=== PATIENT | female | born 1995 | race Two or more races ===

== ENCOUNTER 2021-01-01 14:10 | Emergency (ER) | payer OTHER, SELFPAY ==
--- NOTE | ~2021-01-01 | CT_ITS ---
EXAMINATION: CT ABDOMEN AND PELVIS WITH CONTRAST CLINICAL INFORMATION: Patient complaining of right lower quadrant abdominal pain. Evaluate for appendicitis. COMPARISON: Pelvic ultrasound dated 01/01/2021. TECHNIQUE: Multidetector CT volumetric acquisition of the abdomen and pelvis was performed after the administration of 85 and mL of intravenous Omnipaque 350. The data set was reformatted in the sagittal and coronal planes and reviewed on an independent workstation. This CT examination was performed using dose optimization techniques as appropriate, variously including the following: *Automated exposure control *Adjustment of mA and/or kV according to patient size (this includes techniques or standardized protocols for targeted exams where dose is matched to indication/reason for exam; i.e. extremities or head) *Use of iterative reconstruction technique DLP: 539 mGy-cm. FINDINGS: LOWER CHEST: There are multiple peripheral groundglass and consolidative changes seen in both lower lobes, suspicious for viral or atypical pneumonia. LIVER, GALLBLADDER, BILIARY TREE: Liver normal size and attenuation. There are several calcifications seen within the right lobe of the liver, consistent with granulomas. No focal cystic or solid mass or intra-or extrahepatic ductal dilatation. Hepatic and portal veins patent. Gallbladder partially distended and within normal limits. PANCREAS: Normal. No ductal dilatation, mass, or surrounding stranding. SPLEEN: Normal size and appearance. Splenic vein patent. ADRENAL GLANDS AND KIDNEYS: Adrenal glands normal. Kidneys bilaterally symmetric in size and function. There is a 0.4 cm low-attenuation mass in the mid left kidney, too small to further characterize, but statistically most likely a tiny cyst. No other focal mass, hydronephrosis, nephrolithiasis or perinephric stranding. URETERS AND BLADDER: Ureters decompressed and within normal limits. Bladder partially distended and within normal limits. PELVIC ORGANS: Uterus unremarkable. Both ovaries are prominent in size with multiple small follicles seen. No suspicious adnexal mass. GASTROINTESTINAL TRACT: Normal. Small and large bowel loops decompressed. Appendix in right lower quadrant is partially visualized and appears unremarkable to the extent seen. No focal inflammatory process is noted in the right lower quadrant.. LYMPHOVASCULAR STRUCTURES: Abdominal aorta normal in caliber. No periaortic collections. No abdominal or pelvic adenopathy or free fluid collection. BONES: Within normal limits. CT/CT abdomen pelvis w con IMPRESSION: 1. No acute intra-abdominal or pelvic findings seen to explain the patient's right lower quadrant pain. Appendix is only partially visualized but appears unremarkable and no focal inflammatory process is seen in the right lower quadrant. 2. Incidental finding of multifocal peripheral groundglass and consolidative changes in both lower lobes, suspicious for a viral or atypical pneumonia. In the correct clinical setting, findings may be consistent with Covid 19 pneumonia. 3. Incidental findings of hepatic granulomas and probable tiny mid left renal cyst.
--- NOTE | ~2021-01-01 | US_ITS ---
EXAMINATION: US PELVIS AND TRANSVAGINAL US PELVIS OVARIAN DOPPLER CLINICAL INFORMATION: Right lower quadrant pain. Ovarian rupture or torsion? COMPARISON: 07/05/2019 TECHNIQUE: Ultrasound of the pelvis is performed using both transabdominal and transvaginal transducers along with Doppler. Transvaginal imaging is performed in order to better evaluate the ovaries and achieve better Doppler signal. FINDINGS: The uterus and ovaries have a normal appearance on transabdominal imaging. On the transabdominal images, the anteflexed, anteverted uterus measures 7.6 x 3.9 x 5.2 cm (cervix to fundus x AP x transverse dimensions). On transvaginal images, the uterus has normal echotexture. No leiomyoma. The cervix is normal. The echogenic endometrial stripe is 0.1 cm AP. The ovaries are normal on transvaginal imaging, as well. The right ovary measures 3.6 x 2.9 x 3.2 cm. The left ovary measures 2.3 x 2.9 x 2.1 cm. Normal-sized follicles within each ovary. Color Doppler images with spectral waveforms show presence of normal arterial and venous flow within each ovary. Small, physiologic amount free fluid is present in the pelvic cul-de-sac. US/US pelvic and transvaginal IMPRESSION: Normal ultrasound imaging examinations of the uterus and ovaries. No ovarian mass or torsion.
--- NOTE | ~2021-01-01 | US_ITS ---
EXAMINATION: US PELVIS AND TRANSVAGINAL US PELVIS OVARIAN DOPPLER CLINICAL INFORMATION: Right lower quadrant pain. Ovarian rupture or torsion? COMPARISON: 07/05/2019 TECHNIQUE: Ultrasound of the pelvis is performed using both transabdominal and transvaginal transducers along with Doppler. Transvaginal imaging is performed in order to better evaluate the ovaries and achieve better Doppler signal. FINDINGS: The uterus and ovaries have a normal appearance on transabdominal imaging. On the transabdominal images, the anteflexed, anteverted uterus measures 7.6 x 3.9 x 5.2 cm (cervix to fundus x AP x transverse dimensions). On transvaginal images, the uterus has normal echotexture. No leiomyoma. The cervix is normal. The echogenic endometrial stripe is 0.1 cm AP. The ovaries are normal on transvaginal imaging, as well. The right ovary measures 3.6 x 2.9 x 3.2 cm. The left ovary measures 2.3 x 2.9 x 2.1 cm. Normal-sized follicles within each ovary. Color Doppler images with spectral waveforms show presence of normal arterial and venous flow within each ovary. Small, physiologic amount free fluid is present in the pelvic cul-de-sac. US/US pelvic ovarian doppler IMPRESSION: Normal ultrasound imaging examinations of the uterus and ovaries. No ovarian mass or torsion.
[2021-01-01 14:16] VITALS: BP 124/64; PULSE 114; RESP 16; TEMP 36.9; O2SAT 98; BMI 18.2
[2021-01-01 15:17] VITALS: BP 123/72; PULSE 102; RESP 16; TEMP 36.6; O2SAT 100
[2021-01-01 15:28] LABS: Glucose Urine UA NEG (NEG); Leukocyte Esterase Urine NEG (NEG); Nitrite Urine NEG (NEG); Specific Gravity - Urine >= 1.030 (1.005-1.025); UACC Culture Trigger NO; Urine Blood NEG (NEG); Urine Ketones NEG (NEG); Urine Protein 2+ MG/DL (NEG-TRACE)
[2021-01-01 15:29] VITALS: BP 123/72; PULSE 108; RESP 16; O2SAT 98
[2021-01-01 15:29] LABS: Appearance Urine HAZY; Color Urine YELLOW; UPreg QC Valid YES; Urine Pregnancy NEGATIVE (NEGATIVE)
[2021-01-01 15:43] LABS: Bacteria Urine 1+ /LPF; RBC Urine 0-2 /HPF (0); Squamous Epithelial Cell Urine 2+ /LPF
[2021-01-01 15:44] LABS: Mucus Urine 2+ /LPF
--- NOTE | 2021-01-01 16:04 | ED.NAVMDI ---
HPI - Nausea/Vomiting/Diarrhea General Chief complaint: Nausea/Vomiting/Diarrhea Stated complaint: ?rash, eye pain, nausea Time Seen by Provider: 01/01/21 15:26 Source: patient Mode of arrival: ambulatory Limitations: no limitations History of Present Illness HPI Narrative: 25-year-old female with a past medical history of right ovarian cyst and asthma presenting to the ED with complaints of right lower quadrant/suprapubic abdominal pain with associated nausea/vomiting since this morning. She also reports a separate complaint of a rash to her face/bilateral arms and legs that she thinks are bites but she is unsure of what is actually biting her. She reports that she sleeps for her and her son and they do not have any rashes or bites. She denies any new people staying at her house. She does not live in a chcf. She is not homeless. She denies any fevers, chills, dizziness, headaches, cough, sore throat, chest pain, shortness breath, radiation of the abdominal pain, back pain, dysuria, hematuria, abnormal vaginal discharge, black or bloody stools, diarrhea constipation, recent travel or sick contacts or possible bad food exposure or any other symptoms complaints or concerns at this time. MD elicited complaint: nausea, vomiting, abdominal pain and other (rash to arms/legs and face ) Onset (ago): day(s) (Started last night worse this morning) Description of vomiting: bilious Associated nausea: Yes Associated abdominal pain: Yes Location of pain: RLQ (/suprapubic abd pain ) Pain consistency: constant Severity: mild Quality: cramping and aching Exacerbating factors: none Relieving factors: none Associated symptoms: denies other symptoms Related Data Previous Rx's Medication Instructions Recorded diphenhydramine HCl 25 mg tablet 50 mg PO TID PRN #10 tab 01/01/21 (Benadryl Allergy) Allergies Allergy/AdvReac Type Severity Reaction Status Date / Time No Known Allergies Allergy Unverified 01/29/20 19:49 [No Known Allergies*] Review of Systems Review of Systems: Constitutional : No Weight loss, No Fever, No Chills, No Night Sweats, No Fatigue, No Malaise ENT/Mouth: No ear pain, No sore throat, No Difficulty swallowing Cardiovascular : No Chest Pain, No SOB, No Dyspnea on Exertion, No Orthopnea, NoEdema, No Palpitations Respiratory : No Cough, No Sputum, No Wheezing, No Dyspnea Gastrointestinal : Positive nausea/vomiting/abdominal pain, No Diarrhea, No blood streaked emesis, No coffee-ground emesis, No gross hematemesis, No blood streak stool, No gross hematochezia, No Melena Genitourinary : No irregular bleeding, No Dysuria, No Urinary Frequency, No Hematuria,No Urinary Incontinence, No Urgency, No Flank Pain Musculoskeletal : No joint pain, No Myalgias, No Joint Swelling Skin : Positive rash to left chin/bilateral arms and lower extremities, No Skin Lesions Neuro : No Weakness, No Numbness, No Paresthesias, No Loss of Consciousness, NoDizziness, No Headache Psych : No Social Issues, Heme/Lymph: No Bruising, No Bleeding,No Lymphadenopathy Endocrine : No Polyuria, No Polydipsia, No Temperature Intolerance Yes all other systems are reviewed and are negative Gastrointestinal: Gastrointestinal: Reports nausea PMFSH Past Medical History Attestation statement: The following information was validated with the patient. Medical History Asthma Social History Social History Alcohol intake: never Patient Tobacco Use Status: Never used Tobacco Use of substances other than those prescribed or required for medical reasons: No Advance Directives: No Advance Directives Information Provided: No Physical Exam Vital Signs: Vital Signs: Last Vital Signs Temp 97.9 F 01/01/21 15:17 Pulse 109 H 01/01/21 17:20 Resp 16 01/01/21 17:20 BP 117/71 01/01/21 17:20 Pulse Ox 98 01/01/21 17:20 Body Mass Index 18.2 vital signs have been reviewed as normal and appeared to be correct. Blood pressure normal. Heart rate tachycardic at 114. Respiration rate normal. Temperature normal. Oxygen saturation normal. Appearance: Alert. Oriented X3. No acute distress. Head: Normal external exam. Normocephalic. Eyes: PERRLA. EOMI. Conjunctiva and sclera normal. Eyelids normal. ENT: Pharynx normal. Uvula midline. Moist mucous membranes. Neck: Normal inspection. Neck supple. FROM. No adenopathy. No meningeal signs. CVS: Normal heart rate and rhythm. Heart sound normal. No murmurs noted. Pulses normal throughout. Respiratory: No respiratory distress. Painless inspiration. Breath sounds normal. No wheezes/rales/rhonchi noted. Chest nontender. No accessory muscle usage noted or decreased air movement noted. Abdomen: Soft and mild tenderness to palpation to right lower quadrant/suprapubic abdomen. Nondistended. No guarding. No rigidity. Bowel sounds normal in all 4 quadrants. No distention noted. No organomegaly noted. No visible injury noted. No rebound tenderness. Negative Rovsing sign. Negative obturator's sign. Negative psoas sign. Negative Tom sign. Back: No CVA tenderness. Full range of motion noted. Skin: Skin warm and dry. Normal skin color. Normal skin turgor. To the left chin patient is noted to have macular papular erythematous blanchable lesions appear like insect bites noted to have it on her bilateral arms and legs. No signs of infection. No additional rashes/lesions/lacerations noted. Extremities: Extremities exhibit normal range of motion. Extremities nontender. Neuro: Oriented X 3. No motor deficit. No sensory deficit. Reflexes normal. Normal steady gait. Course Course Course Narrative: 16pm - 25-year-old female presenting to the ED with complaints of right lower quadrant/suprapubic abdominal pain with associated nausea/vomiting since this morning.? She also reports a separate complaint of a rash to her face/bilateral arms and legs that she thinks are bites but she is unsure of what is actually biting her.? She reports that she sleeps for her and her son and they do not have any rashes or bites. - On exam patient noted to have mild tenderness palpation to right lower quadrant/suprapubic abdomen. Otherwise the rest of the exam is within normal limits. No CVA tenderness is noted. Patient is noted to have a macular papular rash to the left chin/bilateral arms and lower extremities possibly insect bites. No signs of infection. Plan: Labs, UA, UHCG, pelvic/ovarian ultrasound to evaluate for possible ruptured cyst/hemorrhagic/ovarian cyst/ovarian torsion re-evaluate. Reevaluation(s) Reevaluation #1: - WBC 3000 - PLT 159 - otherwise all other labs are within normal limits. - Patient negative for . - UA within normal limits no evidence of UTI. - awaiting ultrasound will re-evaluate Time: 17:17 Reevaluation #2: - ultrasound of pelvic/ovarian/Doppler within normal limits no acute processes such as ovarian mass/torsion or cyst noted. - therefore will obtain a CT scan of abdomen and pelvis with IV contrast to evaluate for any other acute processes such as appendicitis. - Sign out to ANGÉLICA Alarcon pending CT scan of abd/pelvis c IV contrast Time: 17:49 MDM - Nausea/Vomiting/Diarrhea Medical Records Attestation: I reviewed the patient's medical records. Lab Data Attestation: I reviewed the patient's lab results. Result diagrams: 01/01/21 16:09 01/01/21 16:09 Labs: Lab Results 01/01/21 01/01/21 01/01/21 Range/Units 15:22 15:22 16:09 WBC 3.6 L (4.8-10.8) X10*3/uL RBC 4.57 (4.20-5.50) X10*6/uL Hgb 14.3 (12.0-16.0) g/dl Hct 41.5 (37-47) % MCV 90.8 (80-98) fL MCH 31.3 (27.0-33.0) pg MCHC 34.5 (31.0-35.0) g/dl RDW 11.5 (11.0-16.0) % Plt Count 159 L (160-400) X10*3/uL MPV 10.5 (9.4-12.3) fL Immature Gran % (Auto) 0.0 (0.0-0.4) % Neut % (Auto) 82.5 H (45-73) % Lymph % (Auto) 13.6 L (20-40) % Douglas % (Auto) 3.9 (2-11) % Eos % (Auto) 0.0 (0-4) % Baso % (Auto) 0.0 (0-2) % Lymph # (Auto) 0.5 L (1.2-4.9) X10*3/uL Douglas # (Auto) 0.1 (0.1-1.2) X10*3/uL Eos # (Auto) 0.0 (0.0-0.4) X10*3/uL Baso # (Auto) 0.0 (0.0-0.2) X10*3/uL Abs Immat Gran (auto) 0.00 (0.00-0.03) X10*3/uL Absolute Neuts (auto) 3.0 (2.0-8.3) X10*3/uL Absolute Nucleated RBC 0.000 (0.0-0.012) X10*3/uL Nucleated RBC % (auto) 0.0 (0.0-0.2) /100WBC PT (9.9-13.0) SEC INR (0.9-1.1) Sodium (135-145) mmol/L Potassium (3.3-5.1) mmol/L Chloride (96-108) mmol/L Carbon Dioxide (22-29) mmol/L Anion Gap (12-20) BUN (9-16) mg/dL Creatinine (0.5-1.4) mg/dL Estim Creat Clear Calc Estimated GFR Random Glucose (60-115) mg/dL Calcium (8.4-10.2) mg/dL Magnesium (1.6-2.6) mg/dL Total Bilirubin (0.0-1.0) mg/dL AST (5-31) U/L ALT (0-31) U/L Alkaline Phosphatase (39-117) U/L Total Protein (6.5-8.0) g/dL Albumin (3.5-5.0) g/dL Beta HCG, Quant mIU/mL Urine Color YELLOW Urine Appearance HAZY Urine pH 6.0 (5.0-8.0) Ur Specific Vermilion >= 1.030 H (1.005-1.025) Urine Protein 2+ H (NEG-TRACE) MG/DL Urine Glucose (UA) NEG (NEG) MG/DL Urine Ketones NEG (NEG) MG/DL Urine Blood NEG (NEG) Urine Nitrite NEG (NEG) Ur Leukocyte Esterase NEG (NEG) Urine RBC 0-2 (0) /HPF Urine WBC 1-4 (0-4) /HPF Ur Squamous Epith Cells 2+ /LPF Urine Bacteria 1+ /LPF Urine Mucus 2+ /LPF Urine Test NEGATIVE (NEGATIVE) 01/01/21 01/01/21 01/01/21 Range/Units 16:09 16:09 16:09 WBC (4.8-10.8) X10*3/uL RBC (4.20-5.50) X10*6/uL Hgb (12.0-16.0) g/dl Hct (37-47) % MCV (80-98) fL MCH (27.0-33.0) pg MCHC (31.0-35.0) g/dl RDW (11.0-16.0) % Plt Count (160-400) X10*3/uL MPV (9.4-12.3) fL Immature Gran % (Auto) (0.0-0.4) % Neut % (Auto) (45-73) % Lymph % (Auto) (20-40) % Douglas % (Auto) (2-11) % Eos % (Auto) (0-4) % Baso % (Auto) (0-2) % Lymph # (Auto) (1.2-4.9) X10*3/uL Douglas # (Auto) (0.1-1.2) X10*3/uL Eos # (Auto) (0.0-0.4) X10*3/uL Baso # (Auto) (0.0-0.2) X10*3/uL Abs Immat Gran (auto) (0.00-0.03) X10*3/uL Absolute Neuts (auto) (2.0-8.3) X10*3/uL Absolute Nucleated RBC (0.0-0.012) X10*3/uL Nucleated RBC % (auto) (0.0-0.2) /100WBC PT 12.5 (9.9-13.0) SEC INR 1.1 (0.9-1.1) Sodium 140 (135-145) mmol/L Potassium 4.2 (3.3-5.1) mmol/L Chloride 105 (96-108) mmol/L Carbon Dioxide 26 (22-29) mmol/L Anion Gap 13 (12-20) BUN 13 (9-16) mg/dL Creatinine 0.74 (0.5-1.4) mg/dL Estim Creat Clear Calc 87.1 Estimated GFR > 60 Random Glucose 81 (60-115) mg/dL Calcium 9.2 (8.4-10.2) mg/dL Magnesium 1.7 (1.6-2.6) mg/dL Total Bilirubin 0.2 (0.0-1.0) mg/dL AST 21 (5-31) U/L ALT 15 (0-31) U/L Alkaline Phosphatase 67 (39-117) U/L Total Protein 7.5 (6.5-8.0) g/dL Albumin 4.3 (3.5-5.0) g/dL Beta HCG, Quant < 2 mIU/mL Urine Color Urine Appearance Urine pH (5.0-8.0) Ur Specific Vermilion (1.005-1.025) Urine Protein (NEG-TRACE) MG/DL Urine Glucose (UA) (NEG) MG/DL Urine Ketones (NEG) MG/DL Urine Blood (NEG) Urine Nitrite (NEG) Ur Leukocyte Esterase (NEG) Urine RBC (0) /HPF Urine WBC (0-4) /HPF Ur Squamous Epith Cells /LPF Urine Bacteria /LPF Urine Mucus /LPF Urine Test (NEGATIVE) Imaging Data Pelvic/ovarian/Doppler ultrasound: Attestation: I personally reviewed and interpreted this imaging study as follows: Radiologist's impression: FINDINGS: The uterus and ovaries have a normal appearance on transabdominal imaging. On the transabdominal images, the anteflexed, anteverted uterus measures 7.6 x 3.9 x 5.2 cm (cervix to fundus x AP x transverse dimensions). On transvaginal images, the uterus has normal echotexture. No leiomyoma. The cervix is normal. The echogenic endometrial stripe is 0.1 cm AP. The ovaries are normal on transvaginal imaging, as well. The right ovary measures 3.6 x 2.9 x 3.2 cm. The left ovary measures 2.3 x 2.9 x 2.1 cm. Normal-sized follicles within each ovary. Color Doppler images with spectral waveforms show presence of normal arterial and venous flow within each ovary. Small, physiologic amount free fluid is present in the pelvic cul-de-sac. US/US pelvic ovarian doppler IMPRESSION: Normal ultrasound imaging examinations of the uterus and ovaries. No ovarian mass or torsion. Discharge Plan Discharge Clinical Impression: Insect bite Instructions: Insect Bite or Sting (ED) Prescriptions: New diphenhydramine HCl [Benadryl Allergy] 25 mg tablet 50 mg PO TID PRN (Reason: itching) Qty: 10 RF: 0 Referrals: Physician,None [Primary Care Provider] - 2 days (your pcp) Print Language: Persian
[2021-01-01 16:13] LABS: MANUAL DIFF FLAG NO
[2021-01-01 16:16] LABS: Hematocrit 41.5 % (37-47); Hemoglobin 14.3 g/dl (12.0-16.0); Lymphocytes Absolute Auto 0.5 X10*3/uL (1.2-4.9); Lymphocytes Percent Auto 13.6 % (20-40); Mean Corpuscular HGB Conc 34.5 g/dl (31.0-35.0); Mean Corpuscular Hemoglobin 31.3 pg (27.0-33.0); Mean Corpuscular Volume 90.8 fL (80-98); Mean Platelet Volume 10.5 fL (9.4-12.3); Monocytes Absolute Auto 0.1 X10*3/uL (0.1-1.2); Monocytes Percent Auto 3.9 % (2-11); Neutrophils Percent Auto 82.5 % (45-73); Platelet Count 159 X10*3/uL (160-400); Red Blood Count 4.57 X10*6/uL (4.20-5.50); Red Cell Distribution Width 11.5 % (11.0-16.0); White Blood Count 3.6 X10*3/uL (4.8-10.8)
[2021-01-01 16:21] LABS: INTERNATIONAL NORM RATIO 1.1 (0.9-1.1); Prothrombin Time 12.5 SEC (9.9-13.0)
[2021-01-01 16:38] LABS: Magnesium 1.7 mg/dL (1.6-2.6)
[2021-01-01 16:39] LABS: Alanine Aminotransferase 15 U/L (0-31); Albumin Level 4.3 g/dL (3.5-5.0); Alkaline Phosphatase 67 U/L (39-117); Anion Gap 13 (12-20); Aspartate Amino Transferase 21 U/L (5-31); Bilirubin Total 0.2 mg/dL (0.0-1.0); Blood Urea Nitrogen 13 mg/dL (9-16); Calcium 9.2 mg/dL (8.4-10.2); Carbon Dioxide 26 mmol/L (22-29); Chloride 105 mmol/L (96-108); Creatinine Clr Calc Pharmacy 87.1; Estimated Glomerular Filt Rate > 60; Glucose Random 81 mg/dL (60-115); Potassium 4.2 mmol/L (3.3-5.1); Sodium 140 mmol/L (135-145); Total Protein 7.5 g/dL (6.5-8.0)
[2021-01-01 16:52] LABS: HCG Quantitative < 2 mIU/mL
--- NOTE | 2021-01-01 16:58 | PC.NURSE ---
pt to ultrasound via stretcher.
[2021-01-01 17:20] VITALS: BP 117/71; PULSE 109; RESP 16; O2SAT 98
[2021-01-01 18:32] VITALS: BP 114/67; PULSE 107; RESP 18; TEMP 37.9; O2SAT 99
[2021-01-01] MEDS: iohexoL 350 MG/ML 100 ML INFUS..BTL IV (19:27)
[2021-01-01 19:45] VITALS: BP 116/58; PULSE 94; RESP 16; TEMP 37.3; O2SAT 100
[2021-01-01 21:47] LABS: COVID-19 Test Positive (Negative)
== END 2021-01-01 20:39 | disposition home or self-care (01) ==
PROVIDERS: Nurse Practitioner Family; Physician Assistant Medical; Emergency Provider Internal Medicine
DX: U07.1 COVID-19 (principal); R10.31 Right lower quadrant pain; R21 Rash and other nonspecific skin eruption; S00.86XA Insect bite (nonvenomous) of other part of head, initial encounter; S40.862A Insect bite (nonvenomous) of left upper arm, initial encounter; S40.861A Insect bite (nonvenomous) of right upper arm, initial encounter; S80.862A Insect bite (nonvenomous), left lower leg, initial encounter; S80.861A Insect bite (nonvenomous), right lower leg, initial encounter; W57.XXXA Bitten or stung by nonvenomous insect and other nonvenomous arthropods, initial encounter; Y93.84 Activity, sleeping; Y92.013 Bedroom of single-family (private) house as the place of occurrence of the external cause; Y99.9 Unspecified external cause status
CPT/HCPCS: 0241U; 36415; 74177; 76830; 76856; 80053; 81001; 81025; 83735; 84702; 85025; 85610; 87635; 93975; 99284; Q9967

== ENCOUNTER 2021-02-23 11:48 | Outpatient (REF) | payer OTHER, SELFPAY ==
[2021-02-23 13:33] LABS: MANUAL DIFF FLAG NO
[2021-02-23 13:41] LABS: Basophils Percent Auto 0.3 % (0-2); Eosinophils Absolute Auto 0.1 X10*3/uL (0.0-0.4); Eosinophils Percent Auto 1.5 % (0-4); Hemoglobin 12.7 g/dl (12.0-16.0); Imm Gran Abs Auto 0.01 X10*3/uL (0.00-0.03); Imm Gran Pct Auto 0.2 % (0.0-0.4); Lymphocytes Absolute Auto 2.1 X10*3/uL (1.2-4.9); Lymphocytes Percent Auto 36.2 % (20-40); Mean Corpuscular HGB Conc 33.4 g/dl (31.0-35.0); Mean Corpuscular Hemoglobin 30.5 pg (27.0-33.0); Mean Corpuscular Volume 91.1 fL (80-98); Mean Platelet Volume 11.6 fL (9.4-12.3); Monocytes Absolute Auto 0.3 X10*3/uL (0.1-1.2); Monocytes Percent Auto 5.5 % (2-11); Neutrophils Absolute Auto 3.3 X10*3/uL (2.0-8.3); Neutrophils Percent Auto 56.3 % (45-73); Platelet Count 199 X10*3/uL (160-400); Red Blood Count 4.17 X10*6/uL (4.20-5.50); Red Cell Distribution Width 11.7 % (11.0-16.0); White Blood Count 5.9 X10*3/uL (4.8-10.8)
[2021-02-23 13:55] LABS: Alanine Aminotransferase 11 U/L (0-31); Albumin Level 4.3 g/dL (3.5-5.0); Alkaline Phosphatase 62 U/L (39-117); Anion Gap 12 (12-20); Aspartate Amino Transferase 16 U/L (5-31); Bilirubin Total 0.5 mg/dL (0.0-1.0); Blood Urea Nitrogen 12 mg/dL (9-16); Calcium 9.6 mg/dL (8.4-10.2); Carbon Dioxide 25 mmol/L (22-29); Chloride 105 mmol/L (96-108); Estimated Glomerular Filt Rate > 60; Glucose Fasting 80 mg/dL (60-99); Potassium 3.9 mmol/L (3.3-5.1); Sodium 138 mmol/L (135-145); Total Protein 7.3 g/dL (6.5-8.0)
[2021-02-23 14:15] LABS: Thyroid Stimulating Hormone 0.77 uIU/mL (0.32-4.0)
== END 2021-02-23 11:49 | disposition home or self-care (01) ==
LOC: HO.10HDL 11:48
PROVIDERS: Visit Provider Internal Medicine
DX: Z00.00 Encounter for general adult medical examination without abnormal findings (principal); Z13.31 Encounter for screening for depression; R63.0 Anorexia; R21 Rash and other nonspecific skin eruption; J45.909 Unspecified asthma, uncomplicated
CPT/HCPCS: 36415; 80053; 84443; 85025

== ENCOUNTER 2021-05-26 10:41 | Emergency (ER) | payer OTHER, SELFPAY ==
--- NOTE | ~2021-05-26 | XR_ITS ---
EXAMINATION: XR CHEST CLINICAL INFORMATION: Cough. COMPARISON: None TECHNIQUE: Frontal view of the chest was obtained. FINDINGS: No significant abnormality is noted involving the heart, lungs, mediastinum, bony thorax or soft tissues. XR/XR chest 1V IMPRESSION: Unremarkable chest examination.
[2021-05-26 11:36] VITALS: BP 120/72; PULSE 112; RESP 16; TEMP 36.2; O2SAT 100; BMI 18.2
[2021-05-26 12:12] LABS: COVID-19 Test Negative (Negative); IDNOW Serial# 55D5AD1C
--- NOTE | 2021-05-26 15:36 | ED.URI ---
HPI - URI/Sore Throat General Chief Complaint: Upper Respiratory Symptoms Stated Complaint: cough foot pain Time Seen by Provider: 05/26/21 14:51 History of Present Illness HPI Narrative: Patient complains of some cough sore throat body aches and is also concerned that she has no asthma pump and is worried she may start wheezing, no wheezing or shortness of breath now Related Data Previous Rx's Medication Instructions Recorded diphenhydramine HCl 25 mg tablet 50 mg PO TID PRN #10 tab 01/01/21 (Benadryl Allergy) albuterol sulfate 90 mcg/actuation 2 puff INHALATION Q4-6H PRN #8.5 g 05/26/21 aerosol inhaler azithromycin 250 mg tablet See Rx Instructions .ROUTE 05/26/21 (Zithromax Z-Wally) .COMPLEX #6 tab ibuprofen 600 mg tablet 600 mg PO Q6H PRN #20 tab 05/26/21 prednisone 20 mg tablet 40 mg PO DAILY 5 Days #10 tab 05/26/21 Allergies Allergy/AdvReac Type Severity Reaction Status Date / Time No Known Allergies Allergy Unverified 01/29/20 19:49 [No Known Allergies*] Review of Systems Review of Systems: Patient complains of runny nose cough sore throat and body aches Negatives are no fever no chills no dizziness no weakness no fainting no feeling faint no headache no neck pain or stiff neck no chest pain no shortness of breath no abdominal pain no nausea or vomiting or diarrhea no skin rash Yes all other systems are reviewed and are negative PMFSH Past Medical History Source: nursing notes reviewed Medical History Asthma Social History Social History Alcohol intake: never Patient Tobacco Use Status: Never used Tobacco Advance Directives: No Advance Directives Information Provided: Yes Physical Exam Vital Signs: Vital Signs: Last Vital Signs Temp 97.1 F 05/26/21 11:36 Pulse 112 H 05/26/21 11:36 Resp 16 05/26/21 11:36 BP 120/72 05/26/21 11:36 Pulse Ox 100 05/26/21 11:36 BMI result Body Mass Index 18.2 Well-appearing no acute distress, uncomfortable The eyes anicteric no pallor The ears no redness no canal narrowing no signs of infection The pharynx no redness swelling or exudate, mucous membranes are moist, voice is normal Neck is supple Chest clear to auscultation bilateral no wheezing or adventitious sounds Heart no murmur The extremities full range of motion x4 Course Course Course Narrative: Chest x-ray was negative, I repeated the patient's pulse when I listen to her chest and her pulse was 92, she has no respiratory distress breathing comfortably no signs of asthma now Her pharynx was clear with no lymphadenopathy no redness swelling or exudate, strep on likely and she is being prescribed Zithromax for bronchitis any way so no strep test was done today and she is prescribed antibiotic for bronchitis, COVID test negative and well-appearing patient was discharged MDM - URI/Sore Throat Lab Data Labs: Lab Results 05/26/21 Range/Units 11:41 COVID-19 ([facility]) Negative (Negative) COVID-19 Clin Com See Note Discharge Plan Discharge Clinical Impression: Bronchitis Patient Disposition: Home, Self-Care Additional Instructions: Your COVID test was negative and her chest x-ray was normal I wrote a prescription for antibiotic and an asthma pump and we will do a short course of steroids as well Return any time for difficulty breathing and worse condition or any concerns Prescriptions: New albuterol sulfate 90 mcg/actuation HFA aerosol inhaler 2 puff inhalation Q4-6H PRN (Reason: shortness of breath or wheezing) Qty: 8.5 RF: 0 azithromycin [Zithromax Z-Wally] 250 mg tablet See Rx Instructions .ROUTE .COMPLEX Qty: 6 RF: 0 ibuprofen 600 mg tablet 600 mg PO Q6H PRN (Reason: pain) Qty: 20 RF: 0 prednisone 20 mg tablet 40 mg PO DAILY 5 Days Qty: 10 RF: 0 No Action diphenhydramine HCl [Benadryl Allergy] 25 mg tablet 50 mg PO TID PRN (Reason: itching) Qty: 10 RF: 0 Interventions: ED Discharge Assessment Last Done: 05/26/21 16:30 Discharge Date/Time: 05/26/21 16:30
== END 2021-05-26 16:30 | disposition home or self-care (01) ==
PROVIDERS: Emergency Provider Emergency Medicine
DX: J40 Bronchitis, not specified as acute or chronic (principal); Z20.822 Contact with and (suspected) exposure to COVID-19; J45.909 Unspecified asthma, uncomplicated
CPT/HCPCS: 71045; 87635; 99282; 99283

== ENCOUNTER 2022-02-18 09:39 | Emergency (ER) | payer OTHER, SELFPAY ==
--- NOTE | ~2022-02-18 | XR_ITS ---
EXAMINATION: XR CHEST CLINICAL INFORMATION: Cough for one week. COMPARISON: Chest radiograph dated 05/26/2021. TECHNIQUE: Frontal view of the chest was obtained. FINDINGS: The lungs are clear. The cardiomediastinal silhouette is normal in size. There is no pleural effusion or pneumothorax. No acute osseous abnormality. XR/XR chest 1V IMPRESSION: No acute cardiopulmonary findings.
[2022-02-18 09:58] VITALS: BP 107/56; PULSE 89; RESP 18; TEMP 36.4; O2SAT 99; BMI 23.7
[2022-02-18 10:26] LABS: COVID-19 Test Negative (Negative); IDNOW Serial# 16C4AD1C
--- NOTE | 2022-02-18 11:23 | ED_ITS ---
HPI - URI/Sore Throat General Chief Complaint: Upper Respiratory Symptoms Stated Complaint: cough, pain in back and feet. red eye Time Seen by Provider: 02/18/22 11:23 Source: patient Mode of arrival: ambulatory Limitations: no limitations HPI Narrative: Medication Instructions Recorded and hacking. It is keeping her up at night and she is not sleeping well. He (Benadryl Allergy)
--- NOTE | 2022-02-18 11:23 | ED.URI ---
HPI - URI/Sore Throat General Chief Complaint: Upper Respiratory Symptoms Stated Complaint: cough, pain in back and feet. red eye Time Seen by Provider: 02/18/22 11:23 Source: patient Mode of arrival: ambulatory Limitations: no limitations History of Present Illness HPI Narrative: 27-year-old female with history of mild intermittent asthma presents to the ER for evaluation of coughing episodes for 1 week. She reports the cough is dry and hacking. It is keeping her up at night and she is not sleeping well. He also reports new onset of lower back and body aches pains. She woke up yesterday morning with her right eye crusted shut and new redness to the area. No vision changes, no trauma, no foreign body sensation. She denies any fever or chills. The worse part of her complaints today is the hacking cough that is providing her dose from sleeping. She denies any wheezing, has a history of mild intermittent asthma but does not have an inhaler. MD elicited complaint: cough and other ( body aches and eye redness) Pertinent past history: asthma Onset (ago): week(s) (1) Consistency: constant and progressively worsening Severity: moderate Able to tolerate fluids by mouth: Yes Exacerbating factors: deep breaths and supine positioning Relieving factors: nothing Associated symptoms: myalgias, headache and cough Treatments prior to arrival: none Related Data Previous Rx's Medication Instructions Recorded diphenhydramine HCl 25 mg tablet 50 mg PO TID PRN itching #10 tabs 01/01/21 (Benadryl Allergy) albuterol sulfate 90 mcg/actuation 2 puff inhalation Q4-6H PRN 05/26/21 aerosol inhaler shortness of breath or wheezing #8.5 grams azithromycin 250 mg tablet See Rx Instructions PO .COMPLEX #6 05/26/21 (Zithromax Z-Wally) tabs ibuprofen 600 mg tablet 600 mg PO Q6H PRN pain #20 tabs 05/26/21 prednisone 20 mg tablet 40 mg PO DAILY 5 days #10 tabs 05/26/21 benzonatate 100 mg capsule 100 mg PO TID PRN cough #14 caps 02/18/22 erythromycin 5 mg/gram (0.5 %) eye 0.5 inch ophthalmic (eye) TID #3.5 02/18/22 ointment grams hydrocodone-homatropine 5 mg-1.5 5 ml PO Q6H PRN cough #60 mL 02/18/22 mg/5 mL oral syrup (Hycodan (with homatropine)) ibuprofen 600 mg tablet 600 mg PO Q8H PRN fever or pain 02/18/22 #10 tabs prednisone 20 mg tablet 40 mg PO DAILY #10 tabs 02/18/22 Allergies Allergy/AdvReac Type Severity Reaction Status Date / Time No Known Allergies Allergy Unverified 01/29/20 19:49 [No Known Allergies*] Review of Systems Review of Systems: Constitutional: No Fever, No Chills ENT/Mouth: No sore throat, No Rhinorrhea Eyes: No Eye Pain, No Swelling, + Redness, +Discharge Cardiovascular: No Chest Pain, No SOB, No Orthopnea, No Edema Respiratory: + Cough, No Sputum, No Wheezing, No dyspnea Gastrointestinal: No Nausea, No Vomiting, No Diarrhea, No abdominal Pain Musculoskeletal: No joint pain, + Myalgias Skin: No Skin Lesions, No rash Neuro: No Weakness, No Dizziness, + Headache Heme/Lymph: No Bruising, No Lymphadenopathy [facility] Past Medical History Medical History Asthma Social History Social History Alcohol intake: never Patient Tobacco Use Status: Never used Tobacco Advance Directives: No Advance Directives Information Provided: No Physical Exam Vital Signs: Vital Signs: Last Vital Signs Temp 97.5 F 02/18/22 09:58 Pulse 89 02/18/22 09:58 Resp 18 02/18/22 09:58 BP 107/56 L 02/18/22 09:58 Pulse Ox 99 02/18/22 09:58 O2 Del Method 02/18/22 09:58 BMI result Body Mass Index 23.7 Appearance: Alert. Oriented X3. No acute distress. Eyes: Pupils equal, round and reactive to light. Conjunctival injection in the right eye with some mild purulent discharge ENT: Pharynx with mild generalized erythema, no tonsillar swelling or exudate Neck: Normal inspection. Neck supple. CVS: Normal heart rate and rhythm. Pulses normal. Respiratory: No respiratory distress. Breath sounds normal. Dry cough noted Skin: Skin warm and dry. Normal skin color. Normal skin turgor. No rashes. Extremities: No lower extremity edema. Neuro: Oriented X 3. Nonfocal. Course Course Course Narrative: 27 yo female presenting with cough x7 days, dry and keeping her up at night. Also has low back pain and new right eye erythema and discharge. Lungs are slightly coarse but no wheezing present. VSS. CXR is clear. COVID negative. Most likely viral URI. Will give Rx for anti-tussive, prendisone, and erythromycin eye ointment for conjunctivitis. MDM - URI/Sore Throat Lab Data Labs: Lab Results 02/18/22 Range/Units 10:06 COVID-19 ([facility]) Negative (Negative) COVID-19 Clin Com See Note Critical Care Time Critical Care Time Critical Care Time: No Discharge Plan Discharge Clinical Impression: Upper respiratory infection, Conjunctivitis Patient Disposition: Home, Self-Care Instructions: Upper Respiratory Infection (ED), Viral Syndrome (ED), Conjunctivitis (ED) Additional Instructions: Your x-ray was negative for pneumonia. You are negative for COVID Take all of the prescribed medications as directed Do not drive after taking the Hycodan - it can make you lethargic - take it at night before bed Rest and stay hydrated If you develop new or worsening symptoms call 911 or come back to the ER for further evaluation. Prescriptions: New erythromycin 5 mg/gram (0.5 %) ointment 0.5 inch ophthalmic (eye) TID Qty: 3.5 0RF ibuprofen 600 mg tablet 600 mg PO Q8H PRN (Reason: fever or pain) Qty: 10 0RF benzonatate 100 mg capsule 100 mg PO TID PRN (Reason: cough) Qty: 14 0RF hydrocodone-homatropine [Hycodan (with homatropine)] 5-1.5 mg/5 mL syrup 5 ml PO Q6H PRN (Reason: cough) Qty: 60 0RF Rx Instructions: Partial Fill upon patient request. prednisone 20 mg tablet 40 mg PO DAILY Qty: 10 0RF No Action diphenhydramine HCl [Benadryl Allergy] 25 mg tablet 50 mg PO TID PRN (Reason: itching) Qty: 10 0RF albuterol sulfate 90 mcg/actuation HFA aerosol inhaler 2 puff inhalation Q4-6H PRN (Reason: shortness of breath or wheezing) Qty: 8.5 0RF azithromycin [Zithromax Z-Wally] 250 mg tablet See Rx Instructions .ROUTE .COMPLEX Qty: 6 0RF Rx Instructions: For 250 mg dose pack: take 500 mg today (day 1), then 250 mg for 4 days (days 2-5) ibuprofen 600 mg tablet 600 mg PO Q6H PRN (Reason: pain) Qty: 20 0RF prednisone 20 mg tablet 40 mg PO DAILY 5 Days Qty: 10 0RF Print Language: Gabonese
--- OUTSIDE RECORDS SUMMARY | 2022-02-18 11:47 | XMS_ITS ---
Continuity of Care Document
== END 2022-02-18 12:02 | disposition home or self-care (01) ==
PROVIDERS: Emergency Provider Emergency Medicine
DX: J06.9 Acute upper respiratory infection, unspecified (principal); H10.9 Unspecified conjunctivitis; Z20.822 Contact with and (suspected) exposure to COVID-19; J45.909 Unspecified asthma, uncomplicated
CPT/HCPCS: 71045; 87635; 99282; 99283

== ENCOUNTER 2022-07-10 09:32 | Outpatient (REF) | payer OTHER, SELFPAY ==
[2022-07-10 10:40] LABS: MANUAL DIFF FLAG NO
[2022-07-10 10:46] LABS: Basophils Percent Auto 0.3 % (0-2); Eosinophils Percent Auto 0.6 % (0-4); Hemoglobin 13.3 g/dl (12.0-16.0); Imm Gran Abs Auto 0.02 X10*3/uL (0.00-0.03); Imm Gran Pct Auto 0.3 % (0.0-0.4); Lymphocytes Absolute Auto 1.8 X10*3/uL (1.2-4.9); Lymphocytes Percent Auto 25.9 % (20-40); Mean Corpuscular HGB Conc 33.3 g/dl (31.0-35.0); Mean Corpuscular Hemoglobin 30.2 pg (27.0-33.0); Mean Corpuscular Volume 90.7 fL (80.0-98.0); Mean Platelet Volume 11.2 fL (9.4-12.3); Monocytes Absolute Auto 0.4 X10*3/uL (0.1-1.2); Monocytes Percent Auto 5.9 % (2-11); Neutrophils Absolute Auto 4.6 x10*3/uL (2.0-8.3); Platelet Count 249 X10*3/uL (160-400); Red Blood Count 4.41 X10*6/uL (4.20-5.50); Red Cell Distribution Width 11.4 % (11.0-16.0); White Blood Count 6.8 X10*3/uL (4.8-10.8)
[2022-07-10 11:26] LABS: Alanine Aminotransferase 12 U/L (0-31); Albumin Level 4.2 g/dL (3.5-5.0); Alkaline Phosphatase 55 U/L (39-117); Anion Gap 9 (12-20); Aspartate Amino Transferase 16 U/L (5-31); Bilirubin Total 0.5 mg/dL (0.0-1.0); Blood Urea Nitrogen 15 mg/dL (9-16); Calcium 9.2 mg/dL (8.4-10.2); Carbon Dioxide 29 mmol/L (22-29); Chloride 106 mmol/L (96-108); Estimated Glomerular Filt Rate > 60; Glucose Fasting 82 mg/dL (60-99); Potassium 4.6 mmol/L (3.3-5.1); Sodium 139 mmol/L (135-145); Total Protein 7.2 g/dL (6.5-8.0)
== END 2022-07-10 09:33 | disposition home or self-care (01) ==
LOC: HO.10HDL 09:32
PROVIDERS: Internal Medicine; Visit Provider Internal Medicine
DX: Z00.00 Encounter for general adult medical examination without abnormal findings (principal); Z13.31 Encounter for screening for depression; R21 Rash and other nonspecific skin eruption
CPT/HCPCS: 36415; 80053; 84443; 85025

== ENCOUNTER 2022-07-10 09:46 | Emergency (ER) | payer OTHER, SELFPAY ==
--- NOTE | ~2022-07-10 | CT_ITS ---
EXAMINATION: CT HEAD WITHOUT CONTRAST CLINICAL INFORMATION: Headache, pain COMPARISON: None TECHNIQUE: Contiguous axial imaging was performed from the skull base to vertex without intravenous administration of contrast. Additional 2-D coronal and sagittal reformatted images are generated on the CT workstation and uploaded to PACS. This CT examination was performed using dose optimization techniques as appropriate, variously including the following: *Automated exposure control *Adjustment of mA and/or kV according to patient size (this includes techniques or standardized protocols for targeted exams where dose is matched to indication/reason for exam; i.e. extremities or head) *Use of iterative reconstruction technique DLP: [id number] mGy-cm FINDINGS: There is no intracranial hemorrhage, hematoma, or extra-axial fluid collection. The ventricles are normal in size. There is no hydrocephalus, edema, or mass effect. The rodriguez-white matter differentiation appears well preserved . There is no visible acute territorial infarct or mass lesion. The calvarium appears intact. There is no pneumocephalus or orbital emphysema. There is mild mucosal thickening versus small retention cyst posterior inferior lateral left sphenoid. Mild mucosal thickening posterior left ethmoid air cells. No air-fluid levels sinuses, middle ears, or mastoids. CT/CT head/brain wo IV con IMPRESSION: No acute intracranial abnormality.
[2022-07-10 09:49] VITALS: BP 112/64; PULSE 86; RESP 18; TEMP 36.2; O2SAT 100; BMI 22.4
[2022-07-10 10:06] LABS: Basophils Percent Auto 0.3 % (0-2); Eosinophils Percent Auto 0.4 % (0-4); Hemoglobin 13.7 g/dl (12.0-16.0); Imm Gran Abs Auto 0.03 X10*3/uL (0.00-0.03); Imm Gran Pct Auto 0.4 % (0.0-0.4); Lymphocytes Absolute Auto 1.8 X10*3/uL (1.2-4.9); Lymphocytes Percent Auto 25.8 % (20-40); MANUAL DIFF FLAG NO; Mean Corpuscular HGB Conc 34.3 g/dl (31.0-35.0); Mean Corpuscular Volume 90.5 fL (80.0-98.0); Mean Platelet Volume 10.3 fL (9.4-12.3); Monocytes Absolute Auto 0.4 X10*3/uL (0.1-1.2); Monocytes Percent Auto 5.6 % (2-11); Neutrophils Absolute Auto 4.8 x10*3/uL (2.0-8.3); Neutrophils Percent Auto 67.5 % (45-73); Platelet Count 254 X10*3/uL (160-400); Red Blood Count 4.42 X10*6/uL (4.20-5.50); Red Cell Distribution Width 11.4 % (11.0-16.0); White Blood Count 7.1 X10*3/uL (4.8-10.8)
[2022-07-10 10:34] LABS: Anion Gap 11 (12-20); Blood Urea Nitrogen 15 mg/dL (9-16); Calcium 9.3 mg/dL (8.4-10.2); Carbon Dioxide 24 mmol/L (22-29); Chloride 108 mmol/L (96-108); Creatinine Clr Calc Pharmacy 104.6; Estimated Glomerular Filt Rate > 60; Glucose Random 88 mg/dL (60-115); Sodium 138 mmol/L (135-145)
[2022-07-10 10:50] LABS: Appearance Urine Clear; Color Urine Yellow; Glucose Urine UA Negative (Negative); Leukocyte Esterase Urine Small (1+) (Negative); Nitrite Urine Negative (Negative); Specific Gravity - Urine 1.025 (1.005-1.025); UMIC TRIGGER UACC YES; Urine Blood Moderate (2+) (Negative); Urine Ketones Negative (Negative); Urine Protein Negative (Neg-Trace)
[2022-07-10 10:51] LABS: UPreg QC Valid YES; Urine Pregnancy NEGATIVE (NEGATIVE)
[2022-07-10 11:03] LABS: Bacteria Urine None Seen (None Seen); Hyaline Casts Urine 0-2 /LPF (0-2); RBC Urine 0-2 /HPF (0-2); UACC Culture Trigger YES; WBC Urine 0-5 /HPF (0-5)
[2022-07-10 12:24] LABS: Influenza A PCR NEGATIVE (Negative); Influenza B PCR NEGATIVE (Negative); Resp Syncy Virus RNA Qual PCR NEGATIVE (Negative); SARS COV2 PCR INHOUSE NEGATIVE (Negative)
--- NOTE | 2022-07-10 12:27 | ED.HA ---
HPI - Headache General Chief Complaint: Headache Stated Complaint: headache Time Seen by Provider: 07/10/22 11:52 Source: patient History of Present Illness HPI Narrative: Patient complaining of headache for the past 5 days. She describes it as bilateral pressure in the synagogue area. Positive nausea positive photophobia. She states she does not typically get headaches but had a similar episode when she was about 18 years old. Question of family history of migraines. Pain came on gradually. No thunderclap headache. No recent illness. No fevers or chills. No neck pain. No focal weakness. Related Data Previous Rx's Medication Instructions Recorded diphenhydramine HCl 25 mg tablet 50 mg PO TID PRN itching #10 tabs 01/01/21 (Benadryl Allergy) albuterol sulfate 90 mcg/actuation 2 puff inhalation Q4-6H PRN 05/26/21 aerosol inhaler shortness of breath or wheezing #8.5 grams azithromycin 250 mg tablet See Rx Instructions PO .COMPLEX #6 05/26/21 (Zithromax Z-Wally) tabs ibuprofen 600 mg tablet 600 mg PO Q6H PRN pain #20 tabs 05/26/21 prednisone 20 mg tablet 40 mg PO DAILY 5 days #10 tabs 05/26/21 benzonatate 100 mg capsule 100 mg PO TID PRN cough #14 caps 02/18/22 erythromycin 5 mg/gram (0.5 %) eye 0.5 inch ophthalmic (eye) TID #3.5 02/18/22 ointment grams hydrocodone-homatropine 5 mg-1.5 5 ml PO Q6H PRN cough #60 mL 02/18/22 mg/5 mL oral syrup (Hycodan (with homatropine)) ibuprofen 600 mg tablet 600 mg PO Q8H PRN fever or pain 02/18/22 #10 tabs prednisone 20 mg tablet 40 mg PO DAILY #10 tabs 02/18/22 ibuprofen 800 mg tablet 800 mg PO Q8H PRN pain #30 tabs 07/10/22 metoclopramide HCl 10 mg tablet 10 mg PO Q6H PRN nausea and 07/10/22 vomiting #14 tabs Allergies Allergy/AdvReac Type Severity Reaction Status Date / Time No Known Allergies Allergy Unverified 01/29/20 19:49 [No Known Allergies*] Review of Systems Constitutional: Comments: No fevers or chills Eyes: Comments: Photophobia. No vision changes Cardiovascular: Comments: No chest pain Respiratory: Comments: No dyspnea or cough Gastrointestinal: Comments: Nausea. No abdominal pain Genitourinary: Comments: No urinary symptoms Musculoskeletal: Comments: No musculoskeletal symptoms Neurologic: Comments: Headache. No focal weakness PMFSH Past Medical History Medical History Asthma Social History Social History Alcohol intake: never Patient Tobacco Use Status: Never used Tobacco Advance Directives: No Advance Directives Information Provided: No Physical Exam Vital Signs: Vital Signs: Last Vital Signs Temp 97.2 F 07/10/22 09:49 Pulse 86 07/10/22 09:49 Resp 18 07/10/22 09:49 BP 112/64 07/10/22 09:49 Pulse Ox 100 07/10/22 09:49 O2 Del Method 07/10/22 09:49 BMI result Body Mass Index 22.4 Const: Other: Awake alert. Sitting up. No acute distress HEENT: Other: Normocephalic atraumatic Eyes: Other: Mild photophobia. Pupils equal round reactive to light. Extraocular muscles intact Neck: Other: No meningismus Resp: Other: Clear and equal bilaterally without wheezes rales or rhonchi Cardio: Other: Regular rate and rhythm without murmurs rubs or gallops GI: Other: Soft nontender nondistended Skin: Other: No rash Neuro: Other: No focal neurologic deficit Medications Administered Discontinued Medications Generic Name Dose Route Start Last Admin Trade Name Tremaineq PRN Reason Stop Dose Admin Diphenhydramine HCl 25 mg 07/10/22 12:23 07/10/22 12:57 Diphenhydramine Hcl 50 Mg/Ml Vial IVPUSH 07/10/22 12:24 25 mg ONCE ONE Administration Sodium Chloride 1,000 mls @ 999 mls/hr 07/10/22 12:15 07/10/22 14:02 Ns IV 07/10/22 13:15 Infused .Q1H1M DAVE Infusion Ketorolac Tromethamine 30 mg 07/10/22 12:15 07/10/22 12:57 Ketorolac Tromethamine 15 Mg/Ml Vial IVPUSH 07/10/22 12:16 30 mg ONCE ONE Administration Metoclopramide HCl 10 mg 07/10/22 12:15 07/10/22 12:57 Metoclopramide Hcl 10 Mg/2 Ml Vial IVPUSH 07/10/22 12:16 10 mg ONCE ONE Administration Medical Decision Making Medical Decision Making [facility] Narrative: Patient with 5 days worth of headache in the setting of nausea and photophobia. No infectious symptoms or concerns for meningitis at this point. No definite history of migraines but positive familial history of a similar episode 10 years ago. Headache was gradual in onset. Given no prior workup for headaches, will order CT scan to rule out obvious hemorrhage or mass effect. Low concern for subarachnoid at this time. Will treat with IV fluids, IV Toradol, IV Reglan, IV Benadryl. Will re-evaluate after treatment and CT scan results. 14:51. CT scan is normal. Re-evaluation shows patient is feeling much better. She is stable for discharge home with a final diagnosis of headache, migraine type Lab Data 07/10/22 10:01 07/10/22 10:01 Labs: Lab Results 07/10/22 07/10/22 07/10/22 Range/Units 10:01 10:01 10:36 WBC 7.1 (4.8-10.8) X10*3/uL RBC 4.42 (4.20-5.50) X10*6/uL Hgb 13.7 (12.0-16.0) g/dl Hct 40.0 (37.0-47.0) % MCV 90.5 (80.0-98.0) fL MCH 31.0 (27.0-33.0) pg MCHC 34.3 (31.0-35.0) g/dl RDW 11.4 (11.0-16.0) % Plt Count 254 (160-400) X10*3/uL MPV 10.3 (9.4-12.3) fL Immature Gran % (Auto) 0.4 (0.0-0.4) % Neut % (Auto) 67.5 (45-73) % Lymph % (Auto) 25.8 (20-40) % [place] % (Auto) 5.6 (2-11) % Eos % (Auto) 0.4 (0-4) % Baso % (Auto) 0.3 (0-2) % Lymph # (Auto) 1.8 (1.2-4.9) X10*3/uL [place] # (Auto) 0.4 (0.1-1.2) X10*3/uL Eos # (Auto) 0.0 (0.0-0.4) X10*3/uL Baso # (Auto) 0.0 (0.0-0.2) X10*3/uL Abs Immat Gran (auto) 0.03 (0.00-0.03) X10*3/uL Absolute Neuts (auto) 4.8 (2.0-8.3) x10*3/uL Absolute Nucleated RBC 0.000 (0.0-0.012) X10*3/uL Nucleated RBC % (auto) 0.0 (0.0-0.2) /100WBC Sodium 138 (135-145) mmol/L Potassium 5.0 (3.3-5.1) mmol/L Chloride 108 (96-108) mmol/L Carbon Dioxide 24 (22-29) mmol/L Anion Gap 11 L (12-20) BUN 15 (9-16) mg/dL Creatinine 0.68 (0.5-1.4) mg/dL Estim Creat Clear Calc 104.6 Estimated GFR > 60 Random Glucose 88 (60-115) mg/dL Calcium 9.3 (8.4-10.2) mg/dL Urine Color Yellow Urine Appearance Clear Urine pH 6.0 (5.0-9.0) Ur Specific [place] 1.025 (1.005-1.025) Urine Protein Negative (Neg-Trace) mg/dL Urine Glucose (UA) Negative (Negative) mg/dL Urine Ketones Negative (Negative) mg/dL Urine Blood Moderate (2+) H (Negative) Urine Nitrite Negative (Negative) Ur Leukocyte Esterase Small (1+) H (Negative) Urine RBC 0-2 (0-2) /HPF Urine WBC 0-5 (0-5) /HPF Ur Squamous Epith Cells 3-5 (0-2) /HPF Urine Bacteria None Seen (None Seen) Hyaline Casts 0-2 (0-2) /LPF Urine Test (NEGATIVE) Influenza Type A (PCR) (Negative) Influenza Type B (PCR) (Negative) RSV RNA Qual (PCR) (Negative) SARS-CoV-2 RNA (RT-PCR) (Negative) 07/10/22 07/10/22 Range/Units 10:36 11:27 WBC (4.8-10.8) X10*3/uL RBC (4.20-5.50) X10*6/uL Hgb (12.0-16.0) g/dl Hct (37.0-47.0) % MCV (80.0-98.0) fL MCH (27.0-33.0) pg MCHC (31.0-35.0) g/dl RDW (11.0-16.0) % Plt Count (160-400) X10*3/uL MPV (9.4-12.3) fL Immature Gran % (Auto) (0.0-0.4) % Neut % (Auto) (45-73) % Lymph % (Auto) (20-40) % [place] % (Auto) (2-11) % Eos % (Auto) (0-4) % Baso % (Auto) (0-2) % Lymph # (Auto) (1.2-4.9) X10*3/uL [place] # (Auto) (0.1-1.2) X10*3/uL Eos # (Auto) (0.0-0.4) X10*3/uL Baso # (Auto) (0.0-0.2) X10*3/uL Abs Immat Gran (auto) (0.00-0.03) X10*3/uL Absolute Neuts (auto) (2.0-8.3) x10*3/uL Absolute Nucleated RBC (0.0-0.012) X10*3/uL Nucleated RBC % (auto) (0.0-0.2) /100WBC Sodium (135-145) mmol/L Potassium (3.3-5.1) mmol/L Chloride (96-108) mmol/L Carbon Dioxide (22-29) mmol/L Anion Gap (12-20) BUN (9-16) mg/dL Creatinine (0.5-1.4) mg/dL Estim Creat Clear Calc Estimated GFR Random Glucose (60-115) mg/dL Calcium (8.4-10.2) mg/dL Urine Color Urine Appearance Urine pH (5.0-9.0) Ur Specific [place] (1.005-1.025) Urine Protein (Neg-Trace) mg/dL Urine Glucose (UA) (Negative) mg/dL Urine Ketones (Negative) mg/dL Urine Blood (Negative) Urine Nitrite (Negative) Ur Leukocyte Esterase (Negative) Urine RBC (0-2) /HPF Urine WBC (0-5) /HPF Ur Squamous Epith Cells (0-2) /HPF Urine Bacteria (None Seen) Hyaline Casts (0-2) /LPF Urine Test NEGATIVE (NEGATIVE) Influenza Type A (PCR) NEGATIVE (Negative) Influenza Type B (PCR) NEGATIVE (Negative) RSV RNA Qual (PCR) NEGATIVE (Negative) SARS-CoV-2 RNA (RT-PCR) NEGATIVE (Negative) Discharge Plan Discharge Clinical Impression: Migraine Patient Disposition: Home, Self-Care Instructions: Migraine Headache (ED) Prescriptions: New metoclopramide HCl 10 mg tablet 10 mg PO Q6H PRN (Reason: nausea and vomiting) Qty: 14 0RF ibuprofen 800 mg tablet 800 mg PO Q8H PRN (Reason: pain) Qty: 30 0RF No Action diphenhydramine HCl [Benadryl Allergy] 25 mg tablet 50 mg PO TID PRN (Reason: itching) Qty: 10 0RF albuterol sulfate 90 mcg/actuation HFA aerosol inhaler 2 puff inhalation Q4-6H PRN (Reason: shortness of breath or wheezing) Qty: 8.5 0RF azithromycin [Zithromax Z-Wally] 250 mg tablet See Rx Instructions .ROUTE .COMPLEX Qty: 6 0RF Rx Instructions: For 250 mg dose pack: take 500 mg today (day 1), then 250 mg for 4 days (days 2-5) ibuprofen 600 mg tablet 600 mg PO Q6H PRN (Reason: pain) Qty: 20 0RF prednisone 20 mg tablet 40 mg PO DAILY 5 Days Qty: 10 0RF erythromycin 5 mg/gram (0.5 %) ointment 0.5 inch ophthalmic (eye) TID Qty: 3.5 0RF ibuprofen 600 mg tablet 600 mg PO Q8H PRN (Reason: fever or pain) Qty: 10 0RF benzonatate 100 mg capsule 100 mg PO TID PRN (Reason: cough) Qty: 14 0RF hydrocodone-homatropine [Hycodan (with homatropine)] 5-1.5 mg/5 mL syrup 5 ml PO Q6H PRN (Reason: cough) Qty: 60 0RF Rx Instructions: Partial Fill upon patient request. prednisone 20 mg tablet 40 mg PO DAILY Qty: 10 0RF Stand Alone Forms: Work/School Release
[2022-07-10] MEDS: 0.9 % Sodium Chloride 1,000 ML 999 ML IV (12:57)
[2022-07-10] MEDS: Metoclopramide HCl 10 MG/2 ML VIAL IVPUSH (12:57)
[2022-07-10] MEDS: Ketorolac Tromethamine 15 MG/ML VIAL 30 MG IVPUSH (12:57)
[2022-07-10] MEDS: diphenhydrAMINE HCL 50 MG/ML VIAL 25 MG IVPUSH (12:57)
[2022-07-10 15:15] VITALS: BP 109/57; PULSE 90; RESP 18; TEMP 36.8; O2SAT 99
== END 2022-07-10 15:20 | disposition home or self-care (01) ==
PROVIDERS: Physician Assistant Medical; Emergency Provider Emergency Medicine; PCP Internal Medicine
DX: G43.909 Migraine, unspecified, not intractable, without status migrainosus (principal); Z20.822 Contact with and (suspected) exposure to COVID-19; Z20.828 Contact with and (suspected) exposure to other viral communicable diseases
CPT/HCPCS: 0241U; 36415; 70450; 80048; 81001; 81025; 85025; 87086; 96361; 96374; 96375; 99284; J1200; J1885; J2765

== ENCOUNTER 2022-07-31 16:59 | Emergency (ER) | payer OTHER, SELFPAY ==
[2022-07-31 17:01] VITALS: BP 115/68; PULSE 122; RESP 18; TEMP 36.6; O2SAT 99; BMI 22.1
--- NOTE | 2022-07-31 17:01 | ED_ITS ---
HPI - General Adult General Chief complaint: Nausea/Vomiting/Diarrhea <JOSE ANTONIO Gerardo - Last Filed: 07/31/22 17:02> Stated complaint: vomiting/diarrhea <JOSE ANTONIO Gerardo - Last Filed: 07/31/22 17:02> Time Seen by Provider: 07/31/22 21:24 <JOSE ANTONIO Gerardo - Last Filed: 07/31/22 17:02> Source: patient <Lorena Lr MD - Last Filed: 07/31/22 22:25> Mode of arrival: ambulatory <Lorena Lr MD - Last Filed: 07/31/22 22:25> Limitations: no limitations <Lorena Lr MD - Last Filed: 07/31/22 22:25> History of Present Illness HPI narrative: Patient comes to the emergency room complaining of 2 days of headache, nausea vomiting and diarrhea. Patient denies fever or chills <Lorena Lr MD - Last Filed: 07/31/22 22:25> Related Data Home medications: Previous Rx's Medication Instructions Recorded diphenhydramine HCl 25 mg tablet 50 mg PO TID PRN itching #10 tabs 01/01/21 (Benadryl Allergy) albuterol sulfate 90 mcg/actuation 2 puff inhalation Q4-6H PRN 05/26/21 aerosol inhaler shortness of breath or wheezing #8.5 grams azithromycin 250 mg tablet See Rx Instructions PO .COMPLEX #6 05/26/21 (Zithromax Z-Wally) tabs ibuprofen 600 mg tablet 600 mg PO Q6H PRN pain #20 tabs 05/26/21 prednisone 20 mg tablet 40 mg PO DAILY 5 days #10 tabs 05/26/21 benzonatate 100 mg capsule 100 mg PO TID PRN cough #14 caps 02/18/22 erythromycin 5 mg/gram (0.5 %) eye 0.5 inch ophthalmic (eye) TID #3.5 02/18/22 ointment grams hydrocodone-homatropine 5 mg-1.5 5 ml PO Q6H PRN cough #60 mL 02/18/22 mg/5 mL oral syrup (Hycodan (with homatropine)) ibuprofen 600 mg tablet 600 mg PO Q8H PRN fever or pain 02/18/22 #10 tabs prednisone 20 mg tablet 40 mg PO DAILY #10 tabs 02/18/22 ibuprofen 800 mg tablet 800 mg PO Q8H PRN pain #30 tabs 07/10/22 metoclopramide HCl 10 mg tablet 10 mg PO Q6H PRN nausea and 07/10/22 vomiting #14 tabs loperamide 2 mg tablet 2 mg PO Q6H PRN loose stool #10 07/31/22 tabs ondansetron 4 mg disintegrating 4 mg PO Q6H PRN nausea and 07/31/22 tablet vomiting #10 tabs <JOSE ANTONIO Gerardo - Last Filed: 07/31/22 17:02> Allergies/adverse reactions: Allergies Allergy/AdvReac Type Severity Reaction Status Date / Time No Known Allergies Allergy Unverified 01/29/20 19:49 [No Known Allergies*] <JOSE ANTONIO Gerardo - Last Filed: 07/31/22 17:02> Review of Systems Review of Systems: Constitutional : No Weight loss, No Fever, No Chills, No Night Sweats, No Fatigue, complaining of generalized malaise ENT/Mouth : No Hearing loss, No Ear Pain, No Nasal Congestion, No Sinus Pain, No Hoarseness, No sore throat, No Rhinorrhea, No Swallowing Difficulty Eyes: No Eye Pain, No Swelling, No Redness, No Foreign Body, No Discharge, No Vision Changes Cardiovascular : No Chest Pain, No SOB, No Dyspnea on Exertion, No Orthopnea, No Edema, No Palpitations Respiratory : No Cough, No Sputum, No Wheezing, No Smoke Exposure, No Dyspnea Gastrointestinal : Complaining of nausea vomiting and diarrhea, No Constipation, No abdominal Pain, No Hematochezia, No Melena Genitourinary : no irregular bleeding, No Dysuria, No Urinary Frequency, No Hematuria, No Urinary Incontinence, No Urgency, No Flank Pain, No Urinary Flow Changes, No Hesitancy Musculoskeletal : No joint pain, No Myalgias, No Joint Swelling Skin : No Skin Lesions, No rash Neuro : No Weakness, No Numbness, No Paresthesias, No Loss of Consciousness, No Dizziness, complaining of Headache Psych : No Anxiety/Panic, No Depression, No SI/HI/AH/VH, No Social Issues, Heme/Lymph: No Bruising, No Bleeding,No Lymphadenopathy Endocrine : No Polyuria, No Polydipsia, No Temperature Intolerance <Lorena Lr MD - Last Filed: 07/31/22 22:25> FOR[facility]LY [facility], LAT[facility] Past Medical History Medical History: Medical History Asthma <JOSE ANTONIO Gerardo - Last Filed: 07/31/22 17:02> Social History Social History: Social History Alcohol intake: never Patient Tobacco Use Status: Never used Tobacco Advance Directives: No Advance Directives Information Provided: No <JOSE ANTONIO Gerardo - Last Filed: 07/31/22 17:02> Physical Exam ED Vital Signs: Vital Signs - 24 hr 07/31/22 17:01 Temperature 97.9 F Pulse Rate 122 H Respiratory Rate 18 Blood Pressure 115/68 Pulse Oximetry 99 Oxygen Delivery Method Room Air BMI result Body Mass Index 22.1 <JOSE ANTONIO Gerardo - Last Filed: 07/31/22 17:02> Vital Signs - 24 hr 07/31/22 17:01 Temperature 97.9 F Pulse Rate 122 H Respiratory Rate 18 Blood Pressure 115/68 Pulse Oximetry 99 Oxygen Delivery Method Room Air BMI result Body Mass Index 22.1 <Lorena Lr MD - Last Filed: 07/31/22 22:25> Const Other: Appearance: Alert. Oriented X3. No acute distress. Eyes: Pupils equal, round and reactive to light. ENT: Pharynx normal. Neck: Normal inspection. Neck supple. No lymph nodes noted. No crepitus CVS: Normal heart rate and rhythm. Pulses normal. Normal S1 and S2 Respiratory: No respiratory distress. Breath sounds normal. No Wheezing. No rales Abdomen: Soft and nontender. No rigidity. No distention. Skin: Skin warm and dry. Normal skin color. Normal skin turgor. Extremities: No lower extremity edema. No Lacerations. No Rash Neuro: Oriented X 3. No motor deficit. No sensory deficit. Moving all extremities. No slurred speech. CN 2 through 12 grossly intact Psych: calm, cooperative, normal affect <Lorena Lr MD - Last Filed: 07/31/22 22:25> Course Course Course Narrative: This is an RME: Additional HPI, ROS, PE not included below will be deferred to primary provider. 27-year-old female with history of asthma presents with nausea, vomiting, diarrhea since Sunday. No known sick contacts. Abdominal discomfort only when she vomits. Denies fevers, chills, chest pain shortness of breath, hematemesis, hematochezia, headache, vision changes, dizziness. Physical exam benign. Likely viral. Will order viral testing and basic lacked relates to rule out electrolyte abnormalities. <JOSE ANTONIO Gerardo - Last Filed: 07/31/22 17:02> Medications Administered Discontinued Medications Generic Name Dose Route Start Last Admin Trade Name Freq PRN Reason Stop Dose Admin Sodium Chloride 1,000 mls @ 999 mls/hr 07/31/22 17:00 07/31/22 19:57 Ns IV 07/31/22 18:00 999 mls/hr .Q1H1M DAVE Administration Ketorolac Tromethamine 30 mg 07/31/22 21:38 07/31/22 22:16 Ketorolac Tromethamine 30 Mg/Ml Vial IVPUSH 07/31/22 21:39 30 mg ONCE ONE Administration Metoclopramide HCl 10 mg 07/31/22 21:38 07/31/22 22:16 Metoclopramide Hcl 10 Mg/2 Ml Vial IVPUSH 07/31/22 21:39 10 mg ONCE ONE Administration Ondansetron HCl 4 mg 07/31/22 17:00 07/31/22 19:57 Ondansetron Odt 4 Mg Tab.Luis Albertodis TRANSLINGU 07/31/22 17:01 4 mg ONCE ONE Administration <JOSE ANTONIO Gerardo - Last Filed: 07/31/22 17:02> Medications Administered Discontinued Medications Generic Name Dose Route Start Last Admin Trade Name Freq PRN Reason Stop Dose Admin Sodium Chloride 1,000 mls @ 999 mls/hr 07/31/22 17:00 07/31/22 19:57 Ns IV 07/31/22 18:00 999 mls/hr .Q1H1M DAVE Administration Ketorolac Tromethamine 30 mg 07/31/22 21:38 07/31/22 22:16 Ketorolac Tromethamine 30 Mg/Ml Vial IVPUSH 07/31/22 21:39 30 mg ONCE ONE Administration Metoclopramide HCl 10 mg 07/31/22 21:38 07/31/22 22:16 Metoclopramide Hcl 10 Mg/2 Ml Vial IVPUSH 07/31/22 21:39 10 mg ONCE ONE Administration Ondansetron HCl 4 mg 07/31/22 17:00 07/31/22 19:57 Ondansetron Odt 4 Mg Tab.Rapdis TRANSLINGU 07/31/22 17:01 4 mg ONCE ONE Administration <Lorena Lr MD - Last Filed: 07/31/22 22:25> Medical Decision Making Medical Decision Making [facility] Narrative: -patient's labs are unremarkable -patient received IV fluids, 1 dose of IV ketorolac, Reglan, earlier today she receives Zofran under the tongue -urinalysis negative, test negative -patient tested negative for COVID and influenza - <Lorena Lr MD - Last Filed: 07/31/22 22:25> Differential Diagnosis Differential Diagnoses: The differential diagnosis associated with the presentation includes (Viral syndrome, COVID, influenza) <Lorena Lr MD - Last Filed: 07/31/22 22:25> Lab Data [facility] Lab Attestation statement: I reviewed the patient's lab results. <Lorena Lr MD - Last Filed: 07/31/22 22:25> Result Diagrams: 07/31/22 17:22 07/31/22 17:22 <JOSE ANTONIO Gerardo - Last Filed: 07/31/22 17:02> Labs: Lab Results 07/31/22 07/31/22 07/31/22 Range/Units 17:22 17:22 17:22 WBC 6.4 (4.8-10.8) X10*3/uL RBC 4.44 (4.20-5.50) X10*6/uL Hgb 13.7 (12.0-16.0) g/dl Hct 39.8 (37.0-47.0) % MCV 89.6 (80.0-98.0) fL MCH 30.9 (27.0-33.0) pg MCHC 34.4 (31.0-35.0) g/dl RDW 11.3 (11.0-16.0) % Plt Count 210 (160-400) X10*3/uL MPV 10.4 (9.4-12.3) fL Immature Gran % (Auto) 0.3 (0.0-0.4) % Neut % (Auto) 87.3 H (45-73) % Lymph % (Auto) 7.9 L (20-40) % [place] % (Auto) 4.1 (2-11) % Eos % (Auto) 0.2 (0-4) % Baso % (Auto) 0.2 (0-2) % Lymph # (Auto) 0.5 L (1.2-4.9) X10*3/uL [place] # (Auto) 0.3 (0.1-1.2) X10*3/uL Eos # (Auto) 0.0 (0.0-0.4) X10*3/uL Baso # (Auto) 0.0 (0.0-0.2) X10*3/uL Abs Immat Gran (auto) 0.02 (0.00-0.03) X10*3/uL Absolute Neuts (auto) 5.6 (2.0-8.3) x10*3/uL Absolute Nucleated RBC 0.000 (0.0-0.012) X10*3/uL Nucleated RBC % (auto) 0.0 (0.0-0.2) /100WBC Sodium 136 (135-145) mmol/L Potassium 4.1 (3.3-5.1) mmol/L Chloride 104 (96-108) mmol/L Carbon Dioxide 25 (22-29) mmol/L Anion Gap 11 L (12-20) BUN 10 (9-16) mg/dL Creatinine 0.71 (0.5-1.4) mg/dL Estim Creat Clear Calc 100.1 Estimated GFR > 60 Random Glucose 92 (60-115) mg/dL Calcium 9.1 (8.4-10.2) mg/dL Magnesium 1.7 (1.6-2.6) mg/dL Total Bilirubin 0.7 (0.0-1.0) mg/dL AST 19 (5-31) U/L ALT 13 (0-31) U/L Alkaline Phosphatase 62 (39-117) U/L Total Protein 7.0 (6.5-8.0) g/dL Albumin 4.1 (3.5-5.0) g/dL Lipase 20 (8-78) U/L Urine Color Urine Appearance Urine pH (5.0-9.0) Ur Specific Rembrandt (1.005-1.025) Urine Protein (Neg-Trace) mg/dL Urine Glucose (UA) (Negative) mg/dL Urine Ketones (Negative) mg/dL Urine Blood (Negative) Urine Nitrite (Negative) Ur Leukocyte Esterase (Negative) Urine Test (NEGATIVE) COVID-19 ([place]) (Negative) COVID-19 Clin Com Influenza Type A (ALEX) Negative (Negative) Influenza Type B (ALEX) Negative (Negative) Influenza A & B Note See Note 07/31/22 07/31/22 07/31/22 Range/Units 17:22 22:05 22:05 WBC (4.8-10.8) X10*3/uL RBC (4.20-5.50) X10*6/uL Hgb (12.0-16.0) g/dl Hct (37.0-47.0) % MCV (80.0-98.0) fL MCH (27.0-33.0) pg MCHC (31.0-35.0) g/dl RDW (11.0-16.0) % Plt Count (160-400) X10*3/uL MPV (9.4-12.3) fL Immature Gran % (Auto) (0.0-0.4) % Neut % (Auto) (45-73) % Lymph % (Auto) (20-40) % [place] % (Auto) (2-11) % Eos % (Auto) (0-4) % Baso % (Auto) (0-2) % Lymph # (Auto) (1.2-4.9) X10*3/uL [place] # (Auto) (0.1-1.2) X10*3/uL Eos # (Auto) (0.0-0.4) X10*3/uL Baso # (Auto) (0.0-0.2) X10*3/uL Abs Immat Gran (auto) (0.00-0.03) X10*3/uL Absolute Neuts (auto) (2.0-8.3) x10*3/uL Absolute Nucleated RBC (0.0-0.012) X10*3/uL Nucleated RBC % (auto) (0.0-0.2) /100WBC Sodium (135-145) mmol/L Potassium (3.3-5.1) mmol/L Chloride (96-108) mmol/L Carbon Dioxide (22-29) mmol/L Anion Gap (12-20) BUN (9-16) mg/dL Creatinine (0.5-1.4) mg/dL Estim Creat Clear Calc Estimated GFR Random Glucose (60-115) mg/dL Calcium (8.4-10.2) mg/dL Magnesium (1.6-2.6) mg/dL Total Bilirubin (0.0-1.0) mg/dL AST (5-31) U/L ALT (0-31) U/L Alkaline Phosphatase (39-117) U/L Total Protein (6.5-8.0) g/dL Albumin (3.5-5.0) g/dL Lipase (8-78) U/L Urine Color Yellow Urine Appearance Clear Urine pH 5.5 (5.0-9.0) Ur Specific Rembrandt 1.020 (1.005-1.025) Urine Protein Negative (Neg-Trace) mg/dL Urine Glucose (UA) Negative (Negative) mg/dL Urine Ketones 15 (Negative) mg/dL Urine Blood Negative (Negative) Urine Nitrite Negative (Negative) Ur Leukocyte Esterase Negative (Negative) Urine Test NEGATIVE (NEGATIVE) COVID-19 ([place]) Negative (Negative) COVID-19 Clin Com See Note Influenza Type A (ALEX) (Negative) Influenza Type B (ALEX) (Negative) Influenza A & B Note <JOSE ANTONIO Gerardo - Last Filed: 07/31/22 17:02> Lab Results 07/31/22 07/31/22 07/31/22 Range/Units 17:22 17:22 17:22 WBC 6.4 (4.8-10.8) X10*3/uL RBC 4.44 (4.20-5.50) X10*6/uL Hgb 13.7 (12.0-16.0) g/dl Hct 39.8 (37.0-47.0) % MCV 89.6 (80.0-98.0) fL MCH 30.9 (27.0-33.0) pg MCHC 34.4 (31.0-35.0) g/dl RDW 11.3 (11.0-16.0) % Plt Count 210 (160-400) X10*3/uL MPV 10.4 (9.4-12.3) fL Immature Gran % (Auto) 0.3 (0.0-0.4) % Neut % (Auto) 87.3 H (45-73) % Lymph % (Auto) 7.9 L (20-40) % [place] % (Auto) 4.1 (2-11) % Eos % (Auto) 0.2 (0-4) % Baso % (Auto) 0.2 (0-2) % Lymph # (Auto) 0.5 L (1.2-4.9) X10*3/uL [place] # (Auto) 0.3 (0.1-1.2) X10*3/uL Eos # (Auto) 0.0 (0.0-0.4) X10*3/uL Baso # (Auto) 0.0 (0.0-0.2) X10*3/uL Abs Immat Gran (auto) 0.02 (0.00-0.03) X10*3/uL Absolute Neuts (auto) 5.6 (2.0-8.3) x10*3/uL Absolute Nucleated RBC 0.000 (0.0-0.012) X10*3/uL Nucleated RBC % (auto) 0.0 (0.0-0.2) /100WBC Sodium 136 (135-145) mmol/L Potassium 4.1 (3.3-5.1) mmol/L Chloride 104 (96-108) mmol/L Carbon Dioxide 25 (22-29) mmol/L Anion Gap 11 L (12-20) BUN 10 (9-16) mg/dL Creatinine 0.71 (0.5-1.4) mg/dL Estim Creat Clear Calc 100.1 Estimated GFR > 60 Random Glucose 92 (60-115) mg/dL Calcium 9.1 (8.4-10.2) mg/dL Magnesium 1.7 (1.6-2.6) mg/dL Total Bilirubin 0.7 (0.0-1.0) mg/dL AST 19 (5-31) U/L ALT 13 (0-31) U/L Alkaline Phosphatase 62 (39-117) U/L Total Protein 7.0 (6.5-8.0) g/dL Albumin 4.1 (3.5-5.0) g/dL Lipase 20 (8-78) U/L Urine Color Urine Appearance Urine pH (5.0-9.0) Ur Specific Rembrandt (1.005-1.025) Urine Protein (Neg-Trace) mg/dL Urine Glucose (UA) (Negative) mg/dL Urine Ketones (Negative) mg/dL Urine Blood (Negative) Urine Nitrite (Negative) Ur Leukocyte Esterase (Negative) Urine Test (NEGATIVE) COVID-19 ([place]) (Negative) COVID-19 Clin Com Influenza Type A (ALEX) Negative (Negative) Influenza Type B (ALEX) Negative (Negative) Influenza A & B Note See Note 07/31/22 07/31/22 07/31/22 Range/Units 17:22 22:05 22:05 WBC (4.8-10.8) X10*3/uL RBC (4.20-5.50) X10*6/uL Hgb (12.0-16.0) g/dl Hct (37.0-47.0) % MCV (80.0-98.0) fL MCH (27.0-33.0) pg MCHC (31.0-35.0) g/dl RDW (11.0-16.0) % Plt Count (160-400) X10*3/uL MPV (9.4-12.3) fL Immature Gran % (Auto) (0.0-0.4) % Neut % (Auto) (45-73) % Lymph % (Auto) (20-40) % [place] % (Auto) (2-11) % Eos % (Auto) (0-4) % Baso % (Auto) (0-2) % Lymph # (Auto) (1.2-4.9) X10*3/uL [place] # (Auto) (0.1-1.2) X10*3/uL Eos # (Auto) (0.0-0.4) X10*3/uL Baso # (Auto) (0.0-0.2) X10*3/uL Abs Immat Gran (auto) (0.00-0.03) X10*3/uL Absolute Neuts (auto) (2.0-8.3) x10*3/uL Absolute Nucleated RBC (0.0-0.012) X10*3/uL Nucleated RBC % (auto) (0.0-0.2) /100WBC Sodium (135-145) mmol/L Potassium (3.3-5.1) mmol/L Chloride (96-108) mmol/L Carbon Dioxide (22-29) mmol/L Anion Gap (12-20) BUN (9-16) mg/dL Creatinine (0.5-1.4) mg/dL Estim Creat Clear Calc Estimated GFR Random Glucose (60-115) mg/dL Calcium (8.4-10.2) mg/dL Magnesium (1.6-2.6) mg/dL Total Bilirubin (0.0-1.0) mg/dL AST (5-31) U/L ALT (0-31) U/L Alkaline Phosphatase (39-117) U/L Total Protein (6.5-8.0) g/dL Albumin (3.5-5.0) g/dL Lipase (8-78) U/L Urine Color Yellow Urine Appearance Clear Urine pH 5.5 (5.0-9.0) Ur Specific Rembrandt 1.020 (1.005-1.025) Urine Protein Negative (Neg-Trace) mg/dL Urine Glucose (UA) Negative (Negative) mg/dL Urine Ketones 15 (Negative) mg/dL Urine Blood Negative (Negative) Urine Nitrite Negative (Negative) Ur Leukocyte Esterase Negative (Negative) Urine Test NEGATIVE (NEGATIVE) COVID-19 ([place]) Negative (Negative) COVID-19 Clin Com See Note Influenza Type A (ALEX) (Negative) Influenza Type B ([facility]) (Negative) Influenza A & B Note <Lorena rL MD - Last Filed: 07/31/22 22:25> Discharge Plan Discharge Clinical Impression: Acute viral syndrome, Headache <JOSE ANTONIO Gerardo - Last Filed: 07/31/22 17:02> Patient Disposition: Home, Self-Care <JOSE ANTONIO Gerardo - Last Filed: 07/31/22 17:02> Instructions: Acute Headache (ED), Acute Nausea and Vomiting (ED) <JOSE ANTONIO Gerardo - Last Filed: 07/31/22 17:02> Additional Instructions: Please follow-up with your primary care physician tomorrow. If you have any worsening or new symptoms, please return to the emergency room or call 911 <JOSE ANTONIO Gerardo - Last Filed: 07/31/22 17:02> Prescriptions: New ondansetron 4 mg tablet,disintegrating 4 mg PO Q6H PRN (Reason: nausea and vomiting) Qty: 10 0RF loperamide 2 mg tablet 2 mg PO Q6H PRN (Reason: loose stool) Qty: 10 0RF No Action diphenhydramine HCl [Benadryl Allergy] 25 mg tablet 50 mg PO TID PRN (Reason: itching) Qty: 10 0RF albuterol sulfate 90 mcg/actuation HFA aerosol inhaler 2 puff inhalation Q4-6H PRN (Reason: shortness of breath or wheezing) Qty: 8.5 0RF azithromycin [Zithromax Z-Wally] 250 mg tablet See Rx Instructions .ROUTE .COMPLEX Qty: 6 0RF Rx Instructions: For 250 mg dose pack: take 500 mg today (day 1), then 250 mg for 4 days (days 2-5) ibuprofen 600 mg tablet 600 mg PO Q6H PRN (Reason: pain) Qty: 20 0RF prednisone 20 mg tablet 40 mg PO DAILY 5 Days Qty: 10 0RF erythromycin 5 mg/gram (0.5 %) ointment 0.5 inch ophthalmic (eye) TID Qty: 3.5 0RF ibuprofen 600 mg tablet 600 mg PO Q8H PRN (Reason: fever or pain) Qty: 10 0RF benzonatate 100 mg capsule 100 mg PO TID PRN (Reason: cough) Qty: 14 0RF hydrocodone-homatropine [Hycodan (with homatropine)] 5-1.5 mg/5 mL syrup 5 ml PO Q6H PRN (Reason: cough) Qty: 60 0RF Rx Instructions: Partial Fill upon patient request. prednisone 20 mg tablet 40 mg PO DAILY Qty: 10 0RF metoclopramide HCl 10 mg tablet 10 mg PO Q6H PRN (Reason: nausea and vomiting) Qty: 14 0RF ibuprofen 800 mg tablet 800 mg PO Q8H PRN (Reason: pain) Qty: 30 0RF <JOSE ANTONIO Gerardo - Last Filed: 07/31/22 17:02>
[2022-07-31 17:26] LABS: MANUAL DIFF FLAG NO
[2022-07-31 17:28] LABS: Basophils Percent Auto 0.2 % (0-2); Eosinophils Percent Auto 0.2 % (0-4); Hematocrit 39.8 % (37.0-47.0); Hemoglobin 13.7 g/dl (12.0-16.0); Imm Gran Abs Auto 0.02 X10*3/uL (0.00-0.03); Imm Gran Pct Auto 0.3 % (0.0-0.4); Lymphocytes Absolute Auto 0.5 X10*3/uL (1.2-4.9); Lymphocytes Percent Auto 7.9 % (20-40); Mean Corpuscular HGB Conc 34.4 g/dl (31.0-35.0); Mean Corpuscular Hemoglobin 30.9 pg (27.0-33.0); Mean Corpuscular Volume 89.6 fL (80.0-98.0); Mean Platelet Volume 10.4 fL (9.4-12.3); Monocytes Absolute Auto 0.3 X10*3/uL (0.1-1.2); Monocytes Percent Auto 4.1 % (2-11); Neutrophils Absolute Auto 5.6 x10*3/uL (2.0-8.3); Neutrophils Percent Auto 87.3 % (45-73); Platelet Count 210 X10*3/uL (160-400); Red Blood Count 4.44 X10*6/uL (4.20-5.50); Red Cell Distribution Width 11.3 % (11.0-16.0); White Blood Count 6.4 X10*3/uL (4.8-10.8)
[2022-07-31 17:44] LABS: COVID-19 Test Negative (Negative); IDNOW Serial# 08D9AD1C; IDNOW Serial# BCCEAD1C; Influenza A Negative (Negative); Influenza B2 Negative (Negative)
[2022-07-31 17:46] LABS: Alanine Aminotransferase 13 U/L (0-31); Albumin Level 4.1 g/dL (3.5-5.0); Alkaline Phosphatase 62 U/L (39-117); Anion Gap 11 (12-20); Aspartate Amino Transferase 19 U/L (5-31); Bilirubin Total 0.7 mg/dL (0.0-1.0); Blood Urea Nitrogen 10 mg/dL (9-16); Calcium 9.1 mg/dL (8.4-10.2); Carbon Dioxide 25 mmol/L (22-29); Chloride 104 mmol/L (96-108); Creatinine Clr Calc Pharmacy 100.1; Estimated Glomerular Filt Rate > 60; Glucose Random 92 mg/dL (60-115); Lipase 20 U/L (8-78); Magnesium 1.7 mg/dL (1.6-2.6); Potassium 4.1 mmol/L (3.3-5.1); Sodium 136 mmol/L (135-145)
[2022-07-31] MEDS: 0.9 % Sodium Chloride 1,000 ML 999 ML IV (19:57)
[2022-07-31] MEDS: Ondansetron ODT 4 MG TAB.RAPDIS TRANSLINGU (19:57)
[2022-07-31 22:16] LABS: Appearance Urine Clear; Color Urine Yellow; Glucose Urine UA Negative (Negative); Leukocyte Esterase Urine Negative (Negative); Nitrite Urine Negative (Negative); PH 5.5 (5.0-9.0); Urine Blood Negative (Negative); Urine Ketones 15 mg/dL (Negative); Urine Protein Negative (Neg-Trace)
[2022-07-31] MEDS: Ketorolac Tromethamine 30 MG/ML VIAL IVPUSH (22:16)
[2022-07-31] MEDS: Metoclopramide HCl 10 MG/2 ML VIAL IVPUSH (22:16)
[2022-07-31 22:17] LABS: UPreg QC Valid YES; Urine Pregnancy NEGATIVE (NEGATIVE)
== END 2022-07-31 22:53 | disposition home or self-care (01) ==
PROVIDERS: Physician Assistant; Emergency Provider Emergency Medicine; PCP Internal Medicine
DX: B34.9 Viral infection, unspecified (principal); R51.9 Headache, unspecified; R11.2 Nausea with vomiting, unspecified; R19.7 Diarrhea, unspecified; Z20.822 Contact with and (suspected) exposure to COVID-19; J45.909 Unspecified asthma, uncomplicated
CPT/HCPCS: 80053; 81003; 81025; 83690; 83735; 85025; 87502; 87635; 96361; 96374; 96375; 99284; J1885; J2765

== ENCOUNTER 2022-09-26 11:46 | Emergency (ER) | payer OTHER, SELFPAY ==
[2022-09-26 12:06] VITALS: BP 115/72; PULSE 82; RESP 18; TEMP 37.1; O2SAT 100; BMI 21.3
--- NOTE | 2022-09-26 12:07 | ED_ITS ---
HPI - General Adult General Chief complaint: Urogenital-Female Stated complaint: ? 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 Patient states that earlier today she noticed it was painful to urinate. Patient denies any dizziness, lightheadedness, abdominal pain, nausea, vomiting, fever, chills, blurry vision, double vision, loss of vision, chest pain, difficulty breathing, shortness of breath, back pain, night sweats, increased urinary frequency, increased urinary urgency, blood in her stool, syncope or a near syncopal episode, recent trauma or falls, bowel incontinence, bladder incontinence, bowel retention, bladder retention, or any other complaints at this time. Onset (ago): hour(s) Severity: mild Relieving factors: none Exacerbating factors: none Associated symptoms: denies other symptoms Treatments prior to arrival: none Related Data Previous Rx's Medication Instructions Recorded diphenhydramine HCl 25 mg tablet 50 mg PO TID PRN itching #10 tabs 01/01/21 (Benadryl Allergy) albuterol sulfate 90 mcg/actuation 2 puff inhalation Q4-6H PRN 05/26/21 aerosol inhaler shortness of breath or wheezing #8.5 grams azithromycin 250 mg tablet See Rx Instructions PO .COMPLEX #6 05/26/21 (Zithromax Z-Wally) tabs ibuprofen 600 mg tablet 600 mg PO Q6H PRN pain #20 tabs 05/26/21 prednisone 20 mg tablet 40 mg PO DAILY 5 days #10 tabs 05/26/21 benzonatate 100 mg capsule 100 mg PO TID PRN cough #14 caps 02/18/22 erythromycin 5 mg/gram (0.5 %) eye 0.5 inch ophthalmic (eye) TID #3.5 02/18/22 ointment grams hydrocodone-homatropine 5 mg-1.5 5 ml PO Q6H PRN cough #60 mL 02/18/22 mg/5 mL oral syrup (Hycodan (with homatropine)) ibuprofen 600 mg tablet 600 mg PO Q8H PRN fever or pain 02/18/22 #10 tabs prednisone 20 mg tablet 40 mg PO DAILY #10 tabs 02/18/22 ibuprofen 800 mg tablet 800 mg PO Q8H PRN pain #30 tabs 07/10/22 metoclopramide HCl 10 mg tablet 10 mg PO Q6H PRN nausea and 07/10/22 vomiting #14 tabs loperamide 2 mg tablet 2 mg PO Q6H PRN loose stool #10 07/31/22 tabs ondansetron 4 mg disintegrating 4 mg PO Q6H PRN nausea and 07/31/22 tablet vomiting #10 tabs cephalexin 500 mg capsule 500 mg PO Q6H 7 days #28 caps 09/26/22 nitrofurantoin 100 mg PO Q12H 7 days #14 caps 09/30/22 monohydrate/macrocrystals 100 mg capsule (Macrobid) Allergies Allergy/AdvReac Type Severity Reaction Status Date / Time No Known Allergies Allergy Verified 09/26/22 12:10 [No Known Allergies*] Review of Systems Constitutional: Constitutional: Reports no additional constitutional complaints, Denies chills, Denies fever(s) and Denies night sweats Eyes: Eyes: Reports no additional eye complaints, Denies blurry vision, Denies change in vision, Denies diplopia, Denies eye discharge, Denies loss of vision and Denies eye pain ENT: Denies dizziness Cardiovascular: Cardiovascular: Reports no additional cardiovascular complaints, Denies chest pain, Denies lightheadedness, Denies Loss of Consciousness and Denies dyspnea Respiratory: Respiratory: Reports no additional respiratory complaints and Denies dyspnea Gastrointestinal: Gastrointestinal: Reports no additional gastrointestinal com plaints, Denies abdominal pain, Denies melena, Denies hematochezia, Denies change in bowel habits and Denies change in stool character Genitourinary: Genitourinary: Denies urinary frequency, Reports dysuria, Denies urinary incontinence, Denies urinary hesitancy and Denies urinary urgency Musculoskeletal: Musculoskeletal: Reports no additional musculoskeletal complaints, Denies numbness and Denies tingling Neurologic: Denies dizziness, Denies loss of vision, Denies numbness and Denies tingling Psychiatric: Psychiatric: Reports no additional psychiatric complaints Endocrine: Endocrine: Reports no additional endocrine complaints Hematologic/Lymphatic: Hematologic/Lymphatic: Reports no additional hematologic/lymphatic complaints Allergic/Immunologic: Allergic/Immunologic: Reports no additional allergic/immunologic complaints [facility] Past Medical History Attestation statement: The following information was validated with the patient. Source: old records reviewed and nursing notes reviewed Medical History Asthma Social History Social History Alcohol intake: never Patient Tobacco Use Status: Never used Tobacco Smoked in Last 30 Days: No Use of substances other than those prescribed or required for medical reasons: No Advance Directives: No Advance Directives Information Provided: Yes Patient : No Physical Exam ED Vital Signs: Vital Signs - 24 hr 09/26/22 12:06 Temperature 98.7 F Pulse Rate 82 Respiratory Rate 18 Blood Pressure 115/72 Pulse Oximetry 100 Oxygen Delivery Method Room Air BMI result Body Mass Index 21.3 Const General: cooperative, no acute distress, alert and awake Nutritional Appearance: well nourished Orientation/consciousness: patient oriented x3 Limitations: no limitations HENMT Head: Yes normal to inspection and Yes atraumatic Ears: hearing grossly normal bilaterally and external ears normal General nose exam: Normal external nose present, no nasal discharge noted and no epistaxis Face and sinus: Yes normal facial exam, No abrasion and No laceration Mouth: Normal oral and palatal mucosa present, no drooling and no muffled voice Eyes General: appearance normal, both eyes and all related structures Periorbital: periorbital findings normal Eyelids: Yes eyelids normal Conjunctivae: conjunctivae normal Pupils: Equal, round and reactive pupils present EOM: EOMs intact bilaterally Neck Neck: Yes normal visual inspection, Yes full ROM and Yes no lymphadenopathy Chest Chest palpation & inspection: normal inspection of the chest Resp Effort & Inspection: normal respiratory effort and able to speak in complete sentences Auscultation: clear to auscultation bilaterally Cardio Rate: regular rate Rhythm: regular rhythm GI Inspection: Yes normal to inspection Palpation (GI): Soft to palpation, not firm, nontender and no guarding General: Yes no CVA tenderness Back/Spine/Pelvis Back: no CVA tenderness Neuro General: patient oriented x3 and moves all extremities Cranial nerves: Yes Equal, round and reactive pupils present Cognition (Neuro): normal cognition Motor exam (neuro): 5/5 motor strength present throughout Sensory Exam: Normal double simultaneous stimulation for sensation Coordination: [id number] test normal Extrem General: Yes normal to inspection, Yes full ROM and Yes capillary refill normal Psych Appearance: grossly normal Mental Status: mental status grossly normal Affect: normal affect Attitude: cooperative Thought process: Normal thought process present Thought content: Normal thought content present Insight: Good insight present (Psych) Course Course Course Narrative: This is an RME: Additional HPI, ROS, PE not included below will be deferred to primary provider. 27 y/o F, hx of asthma, who presents to the ER for evaluation of suprapubic pain, dysuria, and hematuria since today. Denies fevers. No hx of similar symptoms in the past. No vaginal discharge or bleeding. Pt is sexually active, no concerns for STIs. VSS. Pt stable to return to the until treatment room becomes available. Plan: UA, upreg ordered. Reevaluation(s) Reevaluation #1: 09/30/22--10:00- urine culture grew Staph saprophyticus resistant to oxacillin and penicillin G., called and switched antibiotics to Macrobid. 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 Patient's physical exam was unremarkable. Patient's urine showed an acute urinary tract infection. I explained my physical exam findings as well as all test results to the patient. I answered all questions asked by the patient. I stressed the importance of the patient taking her medication as prescribed. I stressed the importance of the patient following up with her primary care provider. I stressed the importance of the patient returning to the emergency department immediately if her symptoms were to worsen or if she were to develop any dizziness, shortness of breath, difficulty breathing, chest pain, blurry vision, loss of vision, nausea, vomiting, abdominal pain, fever, chills, back pain, or any other complaints. Patient verbalized agreement and understanding with this treatment plan and discharge. Differential Diagnosis Differential Diagnoses: The differential diagnosis associated with the presentation includes urinary tract infection Lab Data [facility] Lab Attestation statement: I reviewed the patient's lab results. Labs: Lab Results 09/26/22 09/26/22 Range/Units 12:22 12:22 Urine Color [place] A Urine Appearance Turbid Urine pH 6.0 (5.0-9.0) Ur Specific [place] 1.025 (1.005-1.025) Urine Protein 100 (2+) H (Neg-Trace) mg/dL Urine Glucose (UA) Negative (Negative) mg/dL Urine Ketones Negative (Negative) mg/dL Urine Blood Large (3+) H (Negative) Urine Nitrite Negative (Negative) Ur Leukocyte Esterase Large (3+) H (Negative) Urine RBC >20 H (0-2) /HPF Urine WBC >50 H (0-5) /HPF Ur Squamous Epith Cells 3-5 (0-2) /HPF Urine Bacteria 2+ (None Seen) Hyaline Casts 0-2 (0-2) /LPF Urine Test NEGATIVE (NEGATIVE) Discharge Plan Discharge Clinical Impression: Urinary tract infection Patient Disposition: Home, Self-Care Instructions: Urinary Tract Infection in Women (DC) Additional Instructions: Follow up with your primary care provider. Return to the emergency department immediately if your symptoms worsen or if you develop any dizziness, shortness of breath, difficulty breathing, chest pain, blurry vision, loss of vision, nausea, vomiting, abdominal pain, fever, chills, back pain, or any other complaints. Cliff un seguimiento con hernandez proveedor de atenci?n primaria. Regrese a la abraham de emergencias de inmediato si danny s?ntomas empeoran o si presenta mareos, dificultad para respirar, dolor de pecho, visi?n borrosa, p?rdida de la visi?n, n?useas, v?mitos, dolor abdominal, fiebre, escalofr?os, dolor de espalda o cualquier otras quejas. Prescriptions: New cephalexin 500 mg capsule 500 mg PO Q6H 7 Days Qty: 28 0RF nitrofurantoin monohyd/m-cryst [Macrobid] 100 mg capsule 100 mg PO Q12H 7 Days Qty: 14 0RF Rx Instructions: must administer with a meal/food No Action diphenhydramine HCl [Benadryl Allergy] 25 mg tablet 50 mg PO TID PRN (Reason: itching) Qty: 10 0RF albuterol sulfate 90 mcg/actuation HFA aerosol inhaler 2 puff inhalation Q4-6H PRN (Reason: shortness of breath or wheezing) Qty: 8.5 0RF azithromycin [Zithromax Z-Wally] 250 mg tablet See Rx Instructions .ROUTE .COMPLEX Qty: 6 0RF Rx Instructions: For 250 mg dose pack: take 500 mg today (day 1), then 250 mg for 4 days (days 2-5) ibuprofen 600 mg tablet 600 mg PO Q6H PRN (Reason: pain) Qty: 20 0RF prednisone 20 mg tablet 40 mg PO DAILY 5 Days Qty: 10 0RF erythromycin 5 mg/gram (0.5 %) ointment 0.5 inch ophthalmic (eye) TID Qty: 3.5 0RF ibuprofen 600 mg tablet 600 mg PO Q8H PRN (Reason: fever or pain) Qty: 10 0RF benzonatate 100 mg capsule 100 mg PO TID PRN (Reason: cough) Qty: 14 0RF hydrocodone-homatropine [Hycodan (with homatropine)] 5-1.5 mg/5 mL syrup 5 ml PO Q6H PRN (Reason: cough) Qty: 60 0RF Rx Instructions: Partial Fill upon patient request. prednisone 20 mg tablet 40 mg PO DAILY Qty: 10 0RF metoclopramide HCl 10 mg tablet 10 mg PO Q6H PRN (Reason: nausea and vomiting) Qty: 14 0RF ibuprofen 800 mg tablet 800 mg PO Q8H PRN (Reason: pain) Qty: 30 0RF ondansetron 4 mg tablet,disintegrating 4 mg PO Q6H PRN (Reason: nausea and vomiting) Qty: 10 0RF loperamide 2 mg tablet 2 mg PO Q6H PRN (Reason: loose stool) Qty: 10 0RF Referrals: Melania Haywood MD [Primary Care Provider] - Stand Alone Forms: Work/School Release Interventions: ED Discharge Assessment Last Done: 09/26/22 15:27 Discharge Date/Time: 09/26/22 15:28 Print Language: Swedish
[2022-09-26 12:36] LABS: UPreg QC Valid YES; Urine Pregnancy NEGATIVE (NEGATIVE)
[2022-09-26 12:48] LABS: Appearance Urine Turbid; Color Urine Orange; Glucose Urine UA Negative (Negative); Leukocyte Esterase Urine Large (3+) (Negative); Nitrite Urine Negative (Negative); Specific Gravity - Urine 1.025 (1.005-1.025); UMIC TRIGGER UACC YES; Urine Blood Large (3+) (Negative); Urine Ketones Negative (Negative); Urine Protein 100 (2+) mg/dL (Neg-Trace)
[2022-09-26 12:49] LABS: Bacteria Urine 2+ (None Seen); Hyaline Casts Urine 0-2 /LPF (0-2); RBC Urine >20 /HPF (0-2); UACC Culture Trigger YES; WBC Urine >50 /HPF (0-5)
[2022-09-26 14:05] VITALS: BP 117/68; PULSE 86; RESP 18; TEMP 36.8; O2SAT 100
--- NOTE | 2022-09-26 14:07 | PC.NURSE ---
patient a&ox3, vss, pt states she has burning sensation with urination, 5/10 pain in the pelvic area, urine obtained in triage and sent, call ledezma within reach, will continue to monitor.
== END 2022-09-26 15:28 | disposition home or self-care (01) ==
PROVIDERS: Physician Assistant Medical; Emergency Provider Student in an Organized Health Care Education/Training Program; PCP Internal Medicine
DX: N39.0 Urinary tract infection, site not specified (principal); B95.7 Other staphylococcus as the cause of diseases classified elsewhere
CPT/HCPCS: 81001; 81025; 87086; 87088; 87186; 99283; 99284

== ENCOUNTER 2022-12-20 18:46 | Emergency (ER) | payer OTHER, SELFPAY ==
--- NOTE | 2022-12-20 19:01 | ED_ITS ---
HPI - General Adult General Chief complaint: Abdominal Pain Stated complaint: dizziness,diarrhea,vomiting Time Seen by Provider: 12/20/22 19:51 Source: patient Mode of arrival: ambulatory Limitations: no limitations History of Present Illness HPI narrative: Patient comes to the emergency room complaining of nausea vomiting and diarrhea that started earlier today. Patient denies chest pain or shortness of breath, patient states that she feels slightly lightheaded. Patient has been trying to keep up with fluids but she vomits. Patient complaining of epigastric pain, unrelated to meals. Related Data Previous Rx's Medication Instructions Recorded diphenhydramine HCl 25 mg tablet 50 mg PO TID PRN itching #10 tabs 01/01/21 (Benadryl Allergy) albuterol sulfate 90 mcg/actuation 2 puff inhalation Q4-6H PRN 05/26/21 aerosol inhaler shortness of breath or wheezing #8.5 grams azithromycin 250 mg tablet See Rx Instructions PO .COMPLEX #6 05/26/21 (Zithromax Z-Wally) tabs ibuprofen 600 mg tablet 600 mg PO Q6H PRN pain #20 tabs 05/26/21 prednisone 20 mg tablet 40 mg PO DAILY 5 days #10 tabs 05/26/21 benzonatate 100 mg capsule 100 mg PO TID PRN cough #14 caps 02/18/22 erythromycin 5 mg/gram (0.5 %) eye 0.5 inch ophthalmic (eye) TID #3.5 02/18/22 ointment grams hydrocodone-homatropine 5 mg-1.5 5 ml PO Q6H PRN cough #60 mL 02/18/22 mg/5 mL oral syrup (Hycodan (with homatropine)) ibuprofen 600 mg tablet 600 mg PO Q8H PRN fever or pain 02/18/22 #10 tabs prednisone 20 mg tablet 40 mg PO DAILY #10 tabs 02/18/22 ibuprofen 800 mg tablet 800 mg PO Q8H PRN pain #30 tabs 07/10/22 metoclopramide HCl 10 mg tablet 10 mg PO Q6H PRN nausea and 07/10/22 vomiting #14 tabs loperamide 2 mg tablet 2 mg PO Q6H PRN loose stool #10 07/31/22 tabs ondansetron 4 mg disintegrating 4 mg PO Q6H PRN nausea and 07/31/22 tablet vomiting #10 tabs cephalexin 500 mg capsule 500 mg PO Q6H 7 days #28 caps 09/26/22 nitrofurantoin 100 mg PO Q12H 7 days #14 caps 09/30/22 monohydrate/macrocrystals 100 mg capsule (Macrobid) cefuroxime axetil 500 mg tablet 500 mg PO BID #14 tabs 12/20/22 loperamide 2 mg capsule 2 mg PO Q6H PRN loose stool #14 12/20/22 caps ondansetron 4 mg disintegrating 4 mg PO Q6H PRN nausea and 12/20/22 tablet vomiting #10 tabs Allergies Allergy/AdvReac Type Severity Reaction Status Date / Time No Known Allergies Allergy Verified 09/26/22 12:10 [No Known Allergies*] Review of Systems Review of Systems: Constitutional : No Weight loss, No Fever, No Chills, No Night Sweats, No Fatigue, No Malaise ENT/Mouth : No Hearing loss, No Ear Pain, No Nasal Congestion, No Sinus Pain, No Hoarseness, No sore throat, No Rhinorrhea, No Swallowing Difficulty Eyes: No Eye Pain, No Swelling, No Redness, No Foreign Body, No Discharge, No Vision Changes Cardiovascular : No Chest Pain, No SOB, No Dyspnea on Exertion, No Orthopnea, No Edema, No Palpitations Respiratory : No Cough, No Sputum, No Wheezing, No Smoke Exposure, No Dyspnea Gastrointestinal : Smiling of nausea vomiting and diarrhea. No Constipation, signing of epigastric abdominal pain, no hematochezia or melena Genitourinary : no irregular bleeding, No Dysuria, No Urinary Frequency, No Hematuria, No Urinary Incontinence, No Urgency, No Flank Pain, No Urinary Flow Changes, No Hesitancy Musculoskeletal : No joint pain, No Myalgias, No Joint Swelling Skin : No Skin Lesions, No rash Neuro : No Weakness, No Numbness, No Paresthesias, No Loss of Consciousness, No Dizziness, No Headache Psych : No Anxiety/Panic, No Depression, No SI/HI/AH/VH, No Social Issues, Heme/Lymph: No Bruising, No Bleeding,No Lymphadenopathy Endocrine : No Polyuria, No Polydipsia, No Temperature Intolerance PMFSH Past Medical History Medical History Asthma Social History Social History Alcohol intake: never Patient Tobacco Use Status: Never used Tobacco Smoked in Last 30 Days: No Use of substances other than those prescribed or required for medical reasons: No Advance Directives: No Advance Directives Information Provided: No Patient : No Physical Exam ED Vital Signs: Vital Signs - 24 hr 12/20/22 19:02 12/20/22 20:55 12/20/22 21:05 Temperature 98.2 F 97.9 F 99.0 F Pulse Rate 124 H 102 H 98 Respiratory Rate 18 12 18 Blood Pressure 112/72 113/67 112/66 Pulse Oximetry 100 95 99 Oxygen Delivery Method Room Air Room Air Room Air BMI result Body Mass Index 22.3 Const Other: Appearance: Alert. Oriented X3. No acute distress. Eyes: Pupils equal, round and reactive to light. ENT: Pharynx normal. Neck: Normal inspection. Neck supple. No lymph nodes noted. No crepitus CVS: Normal heart rate and rhythm. Pulses normal. Normal S1 and S2 Respiratory: No respiratory distress. Breath sounds normal. No Wheezing. No rales Abdomen: Soft and nontender. No rigidity. No distention. Skin: Skin warm and dry. Normal skin color. Normal skin turgor. Extremities: No lower extremity edema. No Lacerations. No Rash Neuro: Oriented X 3. No motor deficit. No sensory deficit. Moving all extremities. No slurred speech. CN 2 through 12 grossly intact Psych: calm, cooperative, normal affect Course Course Course Narrative: RME - 27 yo Argentine speaking female presents to the ER for evaluation of nausea, multiple episodes of vomiting & diarrhea, epigastric pain and dizziness that started today. No known sick contacts. Unable to tolerate any PO today without vomiting it back up. Plan: lab workup, IVF, antiemetics Medications Administered Discontinued Medications Generic Name Dose Route Start Last Admin Trade Name Freq PRN Reason Stop Dose Admin Cefuroxime Axetil 500 mg 12/20/22 20:07 12/20/22 20:55 Cefuroxime Axetil 500 Mg Tablet PO 12/20/22 20:08 500 mg ONCE ONE Administration Sodium Chloride 1,000 mls @ 999 mls/hr 12/20/22 19:15 12/20/22 21:28 Ns IVCONT 12/20/22 20:15 Infused .Q1H1M DAVE Infusion Loperamide HCl 4 mg 12/20/22 20:00 12/20/22 20:54 Loperamide Hcl 2 Mg Capsule PO 12/20/22 20:01 4 mg ONCE ONE Administration Ondansetron HCl 4 mg 12/20/22 19:02 12/20/22 19:59 Ondansetron Hcl 4 Mg/2 Ml Vial IVPUSH 12/20/22 19:03 4 mg ONCE ONE Administration Medical Decision Making Medical Decision Making [facility] Narrative: -patient receiving IV fluids, Zofran and loperamide. -interpretation of labs, white blood cell count within normal limits, chemistry unremarkable, positive for UTI, patient denies dysuria. -patient given p.o. cefuroxime -after IV fluids in the above-mentioned treatment, patient feeling better, patient before discharge Differential Diagnosis Differential Diagnoses: The differential diagnosis associated with the presentation includes (UTI, pyelonephritis, gastroenteritis, viral illness) Admission/Observation Consideration of admission/observation: Escalation of care including admission/observation considered (Patient unable to tolerate p.o. on arrival, patient considered) Lab Data [facility] Lab Attestation statement: I reviewed the patient's lab results. 12/20/22 19:09 12/20/22 19:09 Labs: Lab Results 12/20/22 12/20/22 Range/Units 19:09 19:09 WBC 9.8 (4.8-10.8) X10*3/uL RBC 4.88 (4.20-5.50) X10*6/uL Hgb 15.2 (12.0-16.0) g/dl Hct 43.8 (37.0-47.0) % MCV 89.8 (80.0-98.0) fL MCH 31.1 (27.0-33.0) pg MCHC 34.7 (31.0-35.0) g/dl RDW 11.3 (11.0-16.0) % Plt Count 241 (160-400) X10*3/uL MPV 10.5 (9.4-12.3) fL Immature Gran % (Auto) 0.3 (0.0-0.4) % Neut % (Auto) 84.5 H (45-73) % Lymph % (Auto) 10.6 L (20-40) % [place] % (Auto) 4.4 (2-11) % Eos % (Auto) 0.1 (0-4) % Baso % (Auto) 0.1 (0-2) % Lymph # (Auto) 1.0 L (1.2-4.9) X10*3/uL [place] # (Auto) 0.4 (0.1-1.2) X10*3/uL Eos # (Auto) 0.0 (0.0-0.4) X10*3/uL Baso # (Auto) 0.0 (0.0-0.2) X10*3/uL Abs Immat Gran (auto) 0.03 (0.00-0.03) X10*3/uL Absolute Neuts (auto) 8.3 (2.0-8.3) x10*3/uL Absolute Nucleated RBC 0.000 (0.0-0.012) X10*3/uL Nucleated RBC % (auto) 0.0 (0.0-0.2) /100WBC Sodium 140 (135-145) mmol/L Potassium 3.8 (3.3-5.1) mmol/L Chloride 104 (96-108) mmol/L Carbon Dioxide 24 (22-29) mmol/L Anion Gap 16 (12-20) BUN 14 (9-16) mg/dL Creatinine 0.80 (0.5-1.4) mg/dL Estim Creat Clear Calc 88.9 Estimated GFR > 60 Random Glucose 89 (60-115) mg/dL Calcium 10.1 D (8.4-10.2) mg/dL Magnesium 1.8 (1.6-2.6) mg/dL Total Bilirubin 0.8 (0.0-1.0) mg/dL Direct Bilirubin 0.3 (0.0-0.5) mg/dL AST 19 (5-31) U/L ALT 15 (0-31) U/L Alkaline Phosphatase 73 (39-117) U/L Total Protein 8.5 H (6.5-8.0) g/dL Albumin 4.6 (3.5-5.0) g/dL Lipase 21 (8-78) U/L Critical Care Time Critical Care Time Critical Care Time: Yes Total Critical Care Time: 45 Attestation: I have personally provided critical care time. Time includes review of lab data, radiology results, discussion with consultants, and monitoring for potential decompensation. Intervention performed as documented. Discharge Plan Discharge Clinical Impression: UTI (urinary tract infection), Nausea & vomiting Patient Disposition: Home, Self-Care Instructions: Urinary Tract Infection in Women (ED) Additional Instructions: Please follow-up with your primary care physician tomorrow. If you have any worsening or new symptoms, please return to the emergency room or call 911 Prescriptions: New cefuroxime axetil 500 mg tablet 500 mg PO BID Qty: 14 0RF ondansetron 4 mg tablet,disintegrating 4 mg PO Q6H PRN (Reason: nausea and vomiting) Qty: 10 0RF loperamide 2 mg capsule 2 mg PO Q6H PRN (Reason: loose stool) Qty: 14 0RF No Action diphenhydramine HCl [Benadryl Allergy] 25 mg tablet 50 mg PO TID PRN (Reason: itching) Qty: 10 0RF albuterol sulfate 90 mcg/actuation HFA aerosol inhaler 2 puff inhalation Q4-6H PRN (Reason: shortness of breath or wheezing) Qty: 8.5 0RF azithromycin [Zithromax Z-Wally] 250 mg tablet See Rx Instructions .ROUTE .COMPLEX Qty: 6 0RF Rx Instructions: For 250 mg dose pack: take 500 mg today (day 1), then 250 mg for 4 days (days 2-5) ibuprofen 600 mg tablet 600 mg PO Q6H PRN (Reason: pain) Qty: 20 0RF prednisone 20 mg tablet 40 mg PO DAILY 5 Days Qty: 10 0RF erythromycin 5 mg/gram (0.5 %) ointment 0.5 inch ophthalmic (eye) TID Qty: 3.5 0RF ibuprofen 600 mg tablet 600 mg PO Q8H PRN (Reason: fever or pain) Qty: 10 0RF benzonatate 100 mg capsule 100 mg PO TID PRN (Reason: cough) Qty: 14 0RF hydrocodone-homatropine [Hycodan (with homatropine)] 5-1.5 mg/5 mL syrup 5 ml PO Q6H PRN (Reason: cough) Qty: 60 0RF Rx Instructions: Partial Fill upon patient request. prednisone 20 mg tablet 40 mg PO DAILY Qty: 10 0RF metoclopramide HCl 10 mg tablet 10 mg PO Q6H PRN (Reason: nausea and vomiting) Qty: 14 0RF ibuprofen 800 mg tablet 800 mg PO Q8H PRN (Reason: pain) Qty: 30 0RF ondansetron 4 mg tablet,disintegrating 4 mg PO Q6H PRN (Reason: nausea and vomiting) Qty: 10 0RF loperamide 2 mg tablet 2 mg PO Q6H PRN (Reason: loose stool) Qty: 10 0RF cephalexin 500 mg capsule 500 mg PO Q6H 7 Days Qty: 28 0RF nitrofurantoin monohyd/m-cryst [Macrobid] 100 mg capsule 100 mg PO Q12H 7 Days Qty: 14 0RF Rx Instructions: must administer with a meal/food
[2022-12-20 19:02] VITALS: BP 112/72; PULSE 124; RESP 18; TEMP 36.8; O2SAT 100; BMI 22.3
[2022-12-20 19:16] LABS: MANUAL DIFF FLAG NO
[2022-12-20 19:18] LABS: Basophils Percent Auto 0.1 % (0-2); Eosinophils Percent Auto 0.1 % (0-4); Hematocrit 43.8 % (37.0-47.0); Hemoglobin 15.2 g/dl (12.0-16.0); Imm Gran Abs Auto 0.03 X10*3/uL (0.00-0.03); Imm Gran Pct Auto 0.3 % (0.0-0.4); Lymphocytes Percent Auto 10.6 % (20-40); Mean Corpuscular HGB Conc 34.7 g/dl (31.0-35.0); Mean Corpuscular Hemoglobin 31.1 pg (27.0-33.0); Mean Corpuscular Volume 89.8 fL (80.0-98.0); Mean Platelet Volume 10.5 fL (9.4-12.3); Monocytes Absolute Auto 0.4 X10*3/uL (0.1-1.2); Monocytes Percent Auto 4.4 % (2-11); Neutrophils Absolute Auto 8.3 x10*3/uL (2.0-8.3); Neutrophils Percent Auto 84.5 % (45-73); Platelet Count 241 X10*3/uL (160-400); Red Blood Count 4.88 X10*6/uL (4.20-5.50); Red Cell Distribution Width 11.3 % (11.0-16.0); White Blood Count 9.8 X10*3/uL (4.8-10.8)
[2022-12-20 19:34] LABS: Alanine Aminotransferase 15 U/L (0-31); Albumin Level 4.6 g/dL (3.5-5.0); Alkaline Phosphatase 73 U/L (39-117); Anion Gap 16 (12-20); Aspartate Amino Transferase 19 U/L (5-31); Bilirubin Direct 0.3 mg/dL (0.0-0.5); Bilirubin Total 0.8 mg/dL (0.0-1.0); Blood Urea Nitrogen 14 mg/dL (9-16); Calcium 10.1 mg/dL (8.4-10.2); Carbon Dioxide 24 mmol/L (22-29); Chloride 104 mmol/L (96-108); Creatinine Clr Calc Pharmacy 88.9; Estimated Glomerular Filt Rate > 60; Glucose Random 89 mg/dL (60-115); Lipase 21 U/L (8-78); Magnesium 1.8 mg/dL (1.6-2.6); Potassium 3.8 mmol/L (3.3-5.1); Sodium 140 mmol/L (135-145); Total Protein 8.5 g/dL (6.5-8.0)
[2022-12-20] MEDS: ondansetron HCL 4 MG/2 ML VIAL IVPUSH (19:59)
[2022-12-20] MEDS: 0.9 % Sodium Chloride 1,000 ML 999 ML IVCONT (20:00)
--- NOTE | 2022-12-20 20:02 | ECG_ITS ---
Test Reason : DIZZINESS Blood Pressure : / mmHG Vent. Rate : 090 BPM Atrial Rate : 090 BPM P-R Int : 166 ms QRS Dur : 078 ms QT Int : 350 ms P-R-T Axes : 070 047 035 degrees QTc Int : 428 ms Normal sinus rhythm with sinus arrhythmia Low voltage QRS Borderline ECG No previous ECGs available Referred By: Lorena Lr Electronically Signed By:Robby De Paz
[2022-12-20] MEDS: Loperamide HCl 2 MG CAPSULE 4 MG PO (20:54)
[2022-12-20 20:55] VITALS: BP 113/67; PULSE 102; RESP 12; TEMP 36.6; O2SAT 95
--- NOTE | 2022-12-20 21:00 | PC.NURSE ---
Pt aox4 resting at the bedside reporting headache, /. VSS beside HR102. Denies cp or sob. Medicated PO as ordered. Tolerated well. Pending urine sample. Urine up provided. Pt aware of plan of care.
[2022-12-20 21:05] VITALS: BP 112/66; PULSE 98; RESP 18; TEMP 37.2; O2SAT 99
[2022-12-20 22:02] VITALS: BP 121/74; PULSE 102; RESP 16; O2SAT 97
== END 2022-12-20 22:03 | disposition home or self-care (01) ==
PROVIDERS: Physician Assistant; Emergency Provider Emergency Medicine; PCP Internal Medicine
DX: R10.2 Pelvic and perineal pain (principal); N39.0 Urinary tract infection, site not specified; R42 Dizziness and giddiness; R11.2 Nausea with vomiting, unspecified; I49.8 Other specified cardiac arrhythmias; Z79.899 Other long term (current) drug therapy
CPT/HCPCS: 36415; 80048; 80076; 83690; 83735; 85025; 93005; 96361; 96374; 99284; 99285; J2405

== ENCOUNTER → 2022-12-20 20:02 | Outpatient (BNV) | payer OTHER, SELFPAY | PROVIDERS: Emergency Provider Emergency Medicine; PCP Internal Medicine; Visit Provider Internal Medicine Cardiovascular Disease | DX: R42 Dizziness and giddiness (principal) | CPT/HCPCS: 93010 ==

== ENCOUNTER 2023-06-05 06:20 | Emergency (ER) | payer OTHER, SELFPAY ==
[2023-06-05 06:22] VITALS: BMI 22.1
--- NOTE | 2023-06-05 06:25 | ECG_ITS ---
Test Reason : CHEST PAIN Blood Pressure : / mmHG Vent. Rate : 116 BPM Atrial Rate : 116 BPM P-R Int : 172 ms QRS Dur : 078 ms QT Int : 314 ms P-R-T Axes : 080 069 041 degrees QTc Int : 436 ms Sinus tachycardia Possible Left atrial enlargement Borderline ECG When compared with ECG of 20-DEC-2022 20:22, No significant change was found Referred By: Generic ED Physician Electronically Signed By:Robby De Paz
[2023-06-05 06:30] VITALS: PULSE 116; RESP 27
--- NOTE | 2023-06-05 06:37 | ED.GENADULT ---
HPI - General Adult General Chief complaint: General Medical Stated complaint: Multiple complaints Time Seen by Provider: 06/05/23 06:36 Source: patient Mode of arrival: ambulatory Limitations: no limitations History of Present Illness HPI narrative: Patient is a 28 year old assigned female at with a history of asthma and ovarian cyst presenting to the emergency department today with trembling. Patient states that over the last 24 hours she has been having trembling. Patient states that she was seen at [facility] on 06/04/2023 for chest pain, SOB, and a fast heart rate and was discharged with instructions to follow up with cardiology. Patient states that she no longer has those complaints, she is just trembling. Patient denies any dizziness, lightheadedness, abdominal pain, nausea, vomiting, fever, chills, blurry vision, double vision, loss of vision, chest pain, difficulty breathing, shortness of breath, back pain, night sweats, pain with urination, increased urinary frequency, increased urinary urgency, blood in her urine or stool, syncope or a near syncopal episode, recent trauma or falls, bowel incontinence, bladder incontinence, bowel retention, bladder retention, or any other complaints at this time. Relieving factors: none Exacerbating factors: none Associated symptoms: denies other symptoms Treatments prior to arrival: none Related Data Previous Rx's Medication Instructions Recorded diphenhydramine HCl 25 mg tablet 50 mg (2 x 25 mg) PO TID PRN 01/01/21 (Benadryl Allergy) itching #10 tabs albuterol sulfate 90 mcg/actuation 2 puff inhalation Q4-6H PRN 05/26/21 aerosol inhaler shortness of breath or wheezing #8.5 grams azithromycin 250 mg tablet See Rx Instructions PO .COMPLEX #6 05/26/21 (Zithromax Z-Wally) tabs ibuprofen 600 mg tablet 600 mg PO Q6H PRN pain #20 tabs 05/26/21 prednisone 20 mg tablet 40 mg (2 x 20 mg) PO DAILY 5 days 05/26/21 #10 tabs benzonatate 100 mg capsule 100 mg PO TID PRN cough #14 caps 02/18/22 erythromycin 5 mg/gram (0.5 %) eye 0.5 inch ophthalmic (eye) TID #3.5 02/18/22 ointment grams hydrocodone-homatropine 5 mg-1.5 5 ml PO Q6H PRN cough #60 mL 02/18/22 mg/5 mL oral syrup (Hycodan (with homatropine)) ibuprofen 600 mg tablet 600 mg PO Q8H PRN fever or pain 02/18/22 #10 tabs prednisone 20 mg tablet 40 mg (2 x 20 mg) PO DAILY #10 tabs 02/18/22 ibuprofen 800 mg tablet 800 mg PO Q8H PRN pain #30 tabs 07/10/22 metoclopramide HCl 10 mg tablet 10 mg PO Q6H PRN nausea and 07/10/22 vomiting #14 tabs loperamide 2 mg tablet 2 mg PO Q6H PRN loose stool #10 07/31/22 tabs ondansetron 4 mg disintegrating 4 mg PO Q6H PRN nausea and 07/31/22 tablet vomiting #10 tabs cephalexin 500 mg capsule 500 mg PO Q6H 7 days #28 caps 09/26/22 nitrofurantoin 100 mg PO Q12H 7 days #14 caps 09/30/22 monohydrate/macrocrystals 100 mg capsule (Macrobid) cefuroxime axetil 500 mg tablet 500 mg PO BID #14 tabs 12/20/22 loperamide 2 mg capsule 2 mg PO Q6H PRN loose stool #14 12/20/22 caps ondansetron 4 mg disintegrating 4 mg PO Q6H PRN nausea and 12/20/22 tablet vomiting #10 tabs Allergies Allergy/AdvReac Type Severity Reaction Status Date / Time No Known Allergies Allergy Verified 06/05/23 06:25 [No Known Allergies*] Review of Systems Constitutional: Constitutional: Reports no additional constitutional complaints, Denies chills, Denies fever(s) and Denies night sweats Eyes: Eyes: Reports no additional eye complaints, Denies blurry vision, Denies change in vision, Denies diplopia, Denies eye discharge, Denies loss of vision and Denies eye pain ENT: Denies dizziness Cardiovascular: Cardiovascular: Reports no additional cardiovascular complaints, Denies chest pain, Denies lightheadedness, Denies Loss of Consciousness and Denies dyspnea Respiratory: Respiratory: Reports no additional respiratory complaints and Denies dyspnea Gastrointestinal: Gastrointestinal: Reports no additional gastrointestinal complaints, Denies abdominal pain, Denies melena, Denies hematochezia, Denies change in bowel habits and Denies change in stool character Genitourinary: Genitourinary: Denies hematuria, Denies urinary frequency, Denies dysuria, Denies urinary incontinence, Denies urinary hesitancy and Denies urinary urgency Musculoskeletal: Musculoskeletal: Reports no additional musculoskeletal complaints, Denies numbness and Denies tingling Neurologic: Denies dizziness, Denies loss of vision, Denies numbness and Denies tingling Comments: trembling Psychiatric: Psychiatric: Reports no additional psychiatric complaints Endocrine: Endocrine: Reports no additional endocrine complaints Hematologic/Lymphatic: Hematologic/Lymphatic: Reports no additional hematologic/lymphatic complaints Allergic/Immunologic: Allergic/Immunologic: Reports no additional allergic/immunologic complaints PMFSH Past Medical History Attestation statement: The following information was validated with the patient. Source: old records reviewed and nursing notes reviewed Medical History Asthma Social History Social History Alcohol intake: never Patient Tobacco Use Status: Never used Tobacco Smoked in Last 30 Days: No Use of substances other than those prescribed or required for medical reasons: No Advance Directives: No Advance Directives Information Provided: No Physical Exam ED Vital Signs: Vital Signs - 24 hr 06/05/23 06:30 06/05/23 07:35 Pulse Rate 116 H 72 Respiratory Rate 27 H 16 Blood Pressure 118/71 Pulse Oximetry 99 Oxygen Delivery Method Room Air BMI result Body Mass Index 22.1 Const General: cooperative, no acute distress, alert and awake Nutritional Appearance: well nourished Orientation/consciousness: patient oriented x3 Limitations: no limitations [facility] Head: Yes normal to inspection and Yes atraumatic Ears: hearing grossly normal bilaterally and external ears normal General nose exam: Normal external nose present, no nasal discharge noted and no epistaxis Face and sinus: Yes normal facial exam, No abrasion and No laceration Mouth: Normal oral and palatal mucosa present, no drooling and no muffled voice Eyes General: appearance normal, both eyes and all related structures Periorbital: periorbital findings normal Eyelids: Yes eyelids normal Conjunctivae: conjunctivae normal Pupils: Equal, round and reactive pupils present EOM: EOMs intact bilaterally Neck Neck: Yes normal visual inspection, Yes full ROM and Yes no lymphadenopathy Chest Chest palpation & inspection: normal inspection of the chest Resp Effort & Inspection: normal respiratory effort and able to speak in complete sentences GI Inspection: Yes normal to inspection Palpation (GI): Soft to palpation, not firm, nontender and no guarding Neuro General: patient oriented x3 and moves all extremities Cranial nerves: Yes Equal, round and reactive pupils present Cognition (Neuro): normal cognition Motor exam (neuro): 5/5 motor strength present throughout Sensory Exam: Normal double simultaneous stimulation for sensation Coordination: [id number] test normal Extrem General: Yes normal to inspection, Yes full ROM and Yes capillary refill normal Psych Appearance: grossly normal Mental Status: mental status grossly normal Affect: normal affect Attitude: cooperative Thought process: Normal thought process present Thought content: Normal thought content present Insight: Good insight present (Psych) Medications Administered Discontinued Medications Generic Name Dose Route Start Last Admin Trade Name Freq PRN Reason Stop Dose Admin Diphenhydramine HCl 25 mg 06/05/23 06:52 06/05/23 07:32 Diphenhydramine Hcl 50 Mg/Ml Vial IVPUSH 06/05/23 06:53 25 mg ONCE ONE Administration Sodium Chloride 1,000 mls @ 999 mls/hr 06/05/23 07:00 06/05/23 09:12 Ns IV 06/05/23 08:00 Infused .Q1H1M DAVE Infusion Lorazepam 2 mg 06/05/23 06:52 06/05/23 07:22 Lorazepam 1 Mg Tablet PO 06/05/23 06:53 2 mg ONCE ONE Administration Medical Decision Making Medical Decision Making [facility] Narrative: Patient is a 28 year old assigned female at with a history of asthma and ovarian cyst presenting to the emergency department today with trembling. Patient's physical exam was unremarkable. Patient's blood work was unremarkable. Patient's EKG was unremarkable. I explained my physical exam findings as well as all test results to the patient. I answered all questions asked by the patient. Patient was given Ativan which resolved her trembling. I stressed the importance of the patient taking her medication as prescribed. I stressed the importance of the patient following up with her primary care provider and a neurologist. I stressed the importance of the patient returning to the emergency department immediately if her symptoms were to worsen or if she were to develop any dizziness, shortness of breath, difficulty breathing, chest pain, blurry vision, loss of vision, nausea, vomiting, abdominal pain, fever, chills, back pain, or any other complaints. Patient verbalized agreement and understanding with this treatment plan and discharge. Differential Diagnosis Differential Diagnoses: The differential diagnosis associated with the presentation includes Trembling Anxiety attack Admission/Observation Consideration of admission/observation: Escalation of care including admission/observation considered Patient would have been admitted to the hospital had her work up had any findings where hospital admission was appropriate and her clinical presentation warranted hospital admission. Lab Data [facility] Lab Attestation statement: I reviewed the patient's lab results. My interpretation of these results are in the [facility] Rationale portion of this note. 06/05/23 06:29 06/05/23 06:29 Labs: Lab Results 06/05/23 06/05/23 06/05/23 Range/Units 06:29 06:31 06:49 WBC 5.9 (4.8-10.8) X10*3/uL RBC 4.27 (4.20-5.50) X10*6/uL Hgb 13.4 (12.0-16.0) g/dl Hct 38.3 (37.0-47.0) % MCV 89.7 (80.0-98.0) fL MCH 31.4 (27.0-33.0) pg MCHC 35.0 (31.0-35.0) g/dl RDW 11.6 (11.0-16.0) % Plt Count 224 (160-400) X10*3/uL MPV 10.6 (9.4-12.3) fL Immature Gran % (Auto) 0.2 (0.0-0.4) % Neut % (Auto) 45.4 (45-73) % Lymph % (Auto) 46.4 H (20-40) % [place] % (Auto) 6.3 (2-11) % Eos % (Auto) 1.5 (0-4) % Baso % (Auto) 0.2 (0-2) % Lymph # (Auto) 2.7 (1.2-4.9) X10*3/uL [place] # (Auto) 0.4 (0.1-1.2) X10*3/uL Eos # (Auto) 0.1 (0.0-0.4) X10*3/uL Baso # (Auto) 0.0 (0.0-0.2) X10*3/uL Abs Immat Gran (auto) 0.01 (0.00-0.03) X10*3/uL Absolute Neuts (auto) 2.7 (2.0-8.3) x10*3/uL Absolute Nucleated RBC 0.000 (0.0-0.012) X10*3/uL Nucleated RBC % (auto) 0.0 (0.0-0.2) /100WBC Sodium 139 (135-145) mmol/L Potassium 3.5 (3.3-5.1) mmol/L Chloride 109 H (96-108) mmol/L Carbon Dioxide 21 L (22-29) mmol/L Anion Gap 13 (12-20) BUN 11 (9-16) mg/dL Creatinine 0.76 (0.5-1.4) mg/dL Estim Creat Clear Calc 92.7 Estimated GFR > 60 POC Glucose (60-115) mg/dL Random Glucose 97 (60-115) mg/dL Calcium 9.1 D (8.4-10.2) mg/dL Total Bilirubin 0.4 (0.0-1.0) mg/dL AST 14 (5-31) U/L ALT 12 (0-31) U/L Alkaline Phosphatase 52 (39-117) U/L Troponin I High Sens < 2.7 (<3.5-17.0) ng/L Total Protein 7.0 (6.5-8.0) g/dL Albumin 3.9 (3.5-5.0) g/dL TSH 3.47 (0.32-4.0) uIU/mL Beta HCG, Quant < 2 mIU/mL COVID-19 ([place]) Negative (Negative) COVID-19 Clin Com See Note Influenza Type A ([facility]) Negative (Negative) Influenza Type B ([facility]) Negative (Negative) Influenza A & B Note See Note 06/05/23 Range/Units 08:07 WBC (4.8-10.8) X10*3/uL RBC (4.20-5.50) X10*6/uL Hgb (12.0-16.0) g/dl Hct (37.0-47.0) % MCV (80.0-98.0) fL MCH (27.0-33.0) pg MCHC (31.0-35.0) g/dl RDW (11.0-16.0) % Plt Count (160-400) X10*3/uL MPV (9.4-12.3) fL Immature Gran % (Auto) (0.0-0.4) % Neut % (Auto) (45-73) % Lymph % (Auto) (20-40) % [place] % (Auto) (2-11) % Eos % (Auto) (0-4) % Baso % (Auto) (0-2) % Lymph # (Auto) (1.2-4.9) X10*3/uL [place] # (Auto) (0.1-1.2) X10*3/uL Eos # (Auto) (0.0-0.4) X10*3/uL Baso # (Auto) (0.0-0.2) X10*3/uL Abs Immat Gran (auto) (0.00-0.03) X10*3/uL Absolute Neuts (auto) (2.0-8.3) x10*3/uL Absolute Nucleated RBC (0.0-0.012) X10*3/uL Nucleated RBC % (auto) (0.0-0.2) /100WBC Sodium (135-145) mmol/L Potassium (3.3-5.1) mmol/L Chloride (96-108) mmol/L Carbon Dioxide (22-29) mmol/L Anion Gap (12-20) BUN (9-16) mg/dL Creatinine (0.5-1.4) mg/dL Estim Creat Clear Calc Estimated GFR POC Glucose 69 (60-115) mg/dL Random Glucose (60-115) mg/dL Calcium (8.4-10.2) mg/dL Total Bilirubin (0.0-1.0) mg/dL AST (5-31) U/L ALT (0-31) U/L Alkaline Phosphatase (39-117) U/L Troponin I High Sens (<3.5-17.0) ng/L Total Protein (6.5-8.0) g/dL Albumin (3.5-5.0) g/dL TSH (0.32-4.0) uIU/mL Beta HCG, Quant mIU/mL COVID-19 ([place]) (Negative) COVID-19 Clin Com Influenza Type A ([facility]) (Negative) Influenza Type B ([facility]) (Negative) Influenza A & B Note Independent Interpretation I performed an independent interpretation of an: EKG Interpretation: Vent. Rate: 116 BPM Atrial Rate: 116 BPM P-R Int: 172 ms QRS Dur: 078 ms QT Int: 314 ms P-R-T Axes: 080 069 041 degrees QTc Int: 436 ms Sinus tachycardia Possible Left atrial enlargement Borderline ECG When compared with ECG of 20-DEC-2022 20:22, No significant change was found DD/ 7 Discharge Plan Discharge Clinical Impression: Spells of trembling Patient Disposition: Home, Self-Care Instructions: Tremors (ED) Additional Instructions: Follow up with your primary care provider and a neurologist. Return to the emergency department immediately if your symptoms worsen or if you develop any dizziness, shortness of breath, difficulty breathing, chest pain, blurry vision, loss of vision, nausea, vomiting, abdominal pain, fever, chills, back pain, or any other complaints. Prescriptions: No Action diphenhydramine HCl [Benadryl Allergy] 25 mg tablet 50 mg PO TID PRN (Reason: itching) Qty: 10 0RF albuterol sulfate 90 mcg/actuation HFA aerosol inhaler 2 puff inhalation Q4-6H PRN (Reason: shortness of breath or wheezing) Qty: 8.5 0RF azithromycin [Zithromax Z-Wally] 250 mg tablet See Rx Instructions .ROUTE .COMPLEX Qty: 6 0RF Rx Instructions: For 250 mg dose pack: take 500 mg today (day 1), then 250 mg for 4 days (days 2-5) ibuprofen 600 mg tablet 600 mg PO Q6H PRN (Reason: pain) Qty: 20 0RF prednisone 20 mg tablet 40 mg PO DAILY 5 Days Qty: 10 0RF erythromycin 5 mg/gram (0.5 %) ointment 0.5 inch ophthalmic (eye) TID Qty: 3.5 0RF ibuprofen 600 mg tablet 600 mg PO Q8H PRN (Reason: fever or pain) Qty: 10 0RF benzonatate 100 mg capsule 100 mg PO TID PRN (Reason: cough) Qty: 14 0RF hydrocodone-homatropine [Hycodan (with homatropine)] 5-1.5 mg/5 mL syrup 5 ml PO Q6H PRN (Reason: cough) Qty: 60 0RF Rx Instructions: Partial Fill upon patient request. prednisone 20 mg tablet 40 mg PO DAILY Qty: 10 0RF metoclopramide HCl 10 mg tablet 10 mg PO Q6H PRN (Reason: nausea and vomiting) Qty: 14 0RF ibuprofen 800 mg tablet 800 mg PO Q8H PRN (Reason: pain) Qty: 30 0RF ondansetron 4 mg tablet,disintegrating 4 mg PO Q6H PRN (Reason: nausea and vomiting) Qty: 10 0RF loperamide 2 mg tablet 2 mg PO Q6H PRN (Reason: loose stool) Qty: 10 0RF cefuroxime axetil 500 mg tablet 500 mg PO BID Qty: 14 0RF ondansetron 4 mg tablet,disintegrating 4 mg PO Q6H PRN (Reason: nausea and vomiting) Qty: 10 0RF loperamide 2 mg capsule 2 mg PO Q6H PRN (Reason: loose stool) Qty: 14 0RF cephalexin 500 mg capsule 500 mg PO Q6H 7 Days Qty: 28 0RF nitrofurantoin monohyd/m-cryst [Macrobid] 100 mg capsule 100 mg PO Q12H 7 Days Qty: 14 0RF Rx Instructions: must administer with a meal/food [place] [facility] [place]] (Call to establish and follow up with a primary care provider. If you already have a primary care provider, please follow up with them.) [facility] [place] [facility] [place] Group] (Call to establish and follow up with a primary care provider. If you already have a primary care provider, please follow up with them.) [facility] [place] [facility] [place]] (Call to establish and follow up with a primary care provider. If you already have a primary care provider, please follow up with them.) [facility] [place] [facility] [Provider Group] (Call to establish and follow up with a neurologist.) Stand Alone Forms: Work/School Release Interventions: ED Discharge Assessment Last Done: 06/05/23 09:50 Discharge Date/Time: 06/05/23 09:50 Print Language: Upper Sorbian
[2023-06-05 06:39] LABS: MANUAL DIFF FLAG NO
[2023-06-05 06:42] LABS: Basophils Percent Auto 0.2 % (0-2); Eosinophils Absolute Auto 0.1 X10*3/uL (0.0-0.4); Eosinophils Percent Auto 1.5 % (0-4); Hematocrit 38.3 % (37.0-47.0); Hemoglobin 13.4 g/dl (12.0-16.0); Imm Gran Abs Auto 0.01 X10*3/uL (0.00-0.03); Imm Gran Pct Auto 0.2 % (0.0-0.4); Lymphocytes Absolute Auto 2.7 X10*3/uL (1.2-4.9); Lymphocytes Percent Auto 46.4 % (20-40); Mean Corpuscular Hemoglobin 31.4 pg (27.0-33.0); Mean Corpuscular Volume 89.7 fL (80.0-98.0); Mean Platelet Volume 10.6 fL (9.4-12.3); Monocytes Absolute Auto 0.4 X10*3/uL (0.1-1.2); Monocytes Percent Auto 6.3 % (2-11); Neutrophils Absolute Auto 2.7 x10*3/uL (2.0-8.3); Neutrophils Percent Auto 45.4 % (45-73); Platelet Count 224 X10*3/uL (160-400); Red Blood Count 4.27 X10*6/uL (4.20-5.50); Red Cell Distribution Width 11.6 % (11.0-16.0); White Blood Count 5.9 X10*3/uL (4.8-10.8)
[2023-06-05 07:01] LABS: Alanine Aminotransferase 12 U/L (0-31); Albumin Level 3.9 g/dL (3.5-5.0); Alkaline Phosphatase 52 U/L (39-117); Anion Gap 13 (12-20); Aspartate Amino Transferase 14 U/L (5-31); Bilirubin Total 0.4 mg/dL (0.0-1.0); Blood Urea Nitrogen 11 mg/dL (9-16); Calcium 9.1 mg/dL (8.4-10.2); Carbon Dioxide 21 mmol/L (22-29); Chloride 109 mmol/L (96-108); Creatinine Clr Calc Pharmacy 92.7; Estimated Glomerular Filt Rate > 60; Glucose Random 97 mg/dL (60-115); Potassium 3.5 mmol/L (3.3-5.1); Sodium 139 mmol/L (135-145)
[2023-06-05 07:03] LABS: Troponin-I High Sensitivity < 2.7 ng/L (<3.5-17.0)
[2023-06-05 07:03] LABS: HCG Quantitative < 2 mIU/mL
--- OUTSIDE RECORDS SUMMARY | 2023-06-05 07:17 | XMS_ITS | Continuity of Care Document ---
Author Name Unknown Organization [facility] ter Address [address] [place] [id number] Care Team Providers Care Advanced Clinical Specialist Name Role Phone Not on Staff, PCP Primary Care Physician Unavail able [place] [facility] [place] - 06/04/[address] [id number]- Encounter Diagnosis Tachycardia(Final) - 06/04/23 Discharge Disposition: A-D/C Home Attending Physician: Anca Solitario DO Admitting Physician: Anca Solitario DO Referring Physician: Not on Staff, Referring MD Allergies, Adverse Reactions, Alerts No Known Allergies Immunizations Given and Recorded Vaccine Date Status Refusal Reason influenza virus vaccine, inactivated 02/17/20 Give n tetanus/diphtheria/pertussis, acel(Tdap) 1 12/08/19 Given 1Result Comment: Bulgarian Tdap VIS given to pt. 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 FINDINGS: LINES AND TUBES: None. LUNGS AND PLEURA: Clear lungs. Normal pulmonary vascularity. No pleural effusion. No pneumothorax. HEART, MEDIASTINUM AND BALAJI: Heart is normal in size. Normal mediastinal and hilar contour. BONES AND SOFT TISSUES: No acute abnormality. IMPRESSION: No acute abnormality. WSN: [id number] Ordering Physician: Libby Gomez Dictated By: Hermelinda Orellana MD Dictated Date/Time: 06/03/23 11:02 p Reviewed By: Hermelinda Orellana MD Signed By: Hermelinda Orellana MD Signed Date/Time: 06/03/23 11:02 pm Transcribed By: ERIC Transcribed Date/Time: 06/03/23 11:02 pm Vital Signs Most recent to oldest [Reference Range]: 1 2 3 Oxygen Saturation [94-100 %] 98 % (06/04/23 2:23 AM) 97 % (06/04/23 1:41 AM) 100 % (06/04/23 12:22 AM) Pulse Rate [55-90 bpm] 79 bpm (06/04/23 2:23 AM) 84 bpm (06/04/23 1:41 AM) 92 bpm *H* (06/04/23 12:22 AM) Blood Pressure [90-138/55-84 mm Hg] 133/56mm Hg (06/04/23 2:23 AM) 115/56mm Hg (06/04/23 1:41 AM) 115/67mm Hg (06/04/23 12:22 AM) Respiratory Rate [16-30 br/min] 18 br/min (06/04/23 2:23 AM) 16 br/min (06/04/23 1:41 AM) 18 br/min (06/04/23 12:22 AM) Temperature [96.8-100.4 DegF] 97.7 DegF (06/03/23 10:35 PM) 98.1 DegF (06/03/23 10:10 PM) Mode of Delivery (Oxygen) Room air (06/04/23 2:23 AM) Room air (06/04/23 1:41 AM) Room air (06/03/23 10:35 PM) Blood pressure sites Arm, right (06/04/23 2:23 AM) Arm, right (06/04/23 1:41 AM) Arm, left (06/04/23 12:22 AM) Temperature Route Oral (06/03/23 10:35 PM) Oral (06/03/23 10:10 PM) Social History Social History Type Response Smoking Status Never (less than 100 in lifetime) entered on: 07/25/19 Sex Female EKG study * Event Display: ECG 12-Lead Authored Date: Please click on pdf link to open report * Event Display: ECG 12-Lead Authored Date: Ventricular Rate: 136 BPM Atrial Rate: 136 BPM P-R Interval: 178 ms QRS Duration: 78 ms Q-T Interval: 260 ms QTC Calculation(Bazett): 391 ms P Temple: 83 degrees R Temple: 71 degrees T Temple: 18 degrees Sinus tachycardia Low voltage QRS Nonspecific T wave abnormality Abnormal ECG When compared with ECG of 03-JUN-2023 22:12, No significant change was found Confirmed by JOSIAH JUÁREZ MD ([id number]) on 06/04/2023 11:21:56 AM Albia: JOSIAH JUÁREZ MD * Event Display: ECG 12-Lead Authored Date: Please click on pdf link to open report * Event Display: ECG 12-Lead Authored Date: Ventricular Rate: 147 BPM QRS Duration: 74 ms Q-T Interval: 322 ms QTC Calculation(Bazett): 503 ms R Temple: 51 degrees T Temple: 46 degrees Probable Sinus tachycardia Otherwise normal ECG When compared with ECG of 23-OCT-2018 03:50, ST now depressed in Anterior leads Confirmed by JOSIAH JUÁREZ MD ([id number]) on 06/04/2023 11:21:50 AM Albia: JOSIAH JUÁREZ MD Patient Care team information Care Team Personnel Name: Corinne Bhavna Position: [facility] PROPERTY CARETAKER MD Member Role: [employer] PROPERTY CARETAKER Physician Name: Not on Staff, PCP Position: [facility] Physician (General Medicine) Member Role: PCP Care Team Related Persons Name: CHUN BASILIO Address: home [address] [place] [address] [address] [place] [address] Name: KAYLIE MONROE Address: [id number] Address: [address] [place] [id number] [place] Name: DEYSI PARRY Address: home [address] [facility] [address] [place] [address]
[2023-06-05] MEDS: LORazepam 1 MG TABLET 2 MG PO (07:22)
[2023-06-05 07:25] LABS: COVID-19 Test Negative (Negative); IDNOW Serial# 16C4AD1C; IDNOW Serial# 55D5AD1C; Influenza A Negative (Negative); Influenza B2 Negative (Negative)
[2023-06-05] MEDS: 0.9 % Sodium Chloride 1,000 ML 999 ML IV (07:30)
[2023-06-05] MEDS: diphenhydrAMINE HCL 50 MG/ML VIAL 25 MG IVPUSH (07:32)
[2023-06-05 07:35] VITALS: BP 118/71; PULSE 72; RESP 16; O2SAT 99
[2023-06-05 08:13] LABS: TSH reflex Free T4 3.47 uIU/mL (0.32-4.0)
[2023-06-05 08:18] LABS: Glucose, Whole Blood 69 mg/dL (60-115)
== END 2023-06-05 09:50 | disposition home or self-care (01) ==
PROVIDERS: Physician Assistant Medical; Emergency Provider Emergency Medicine Emergency Medical Services
DX: R25.1 Tremor, unspecified (principal); R00.0 Tachycardia, unspecified; Z11.52 Encounter for screening for COVID-19
CPT/HCPCS: 36415; 80053; 82947; 84443; 84484; 84702; 85025; 87502; 87635; 93005; 96361; 96374; 99284; J1200

== ENCOUNTER → 2023-06-05 06:25 | Outpatient (BNV) | payer OTHER, SELFPAY | PROVIDERS: Emergency Provider Emergency Medicine Emergency Medical Services; Visit Provider Internal Medicine Cardiovascular Disease | DX: R00.0 Tachycardia, unspecified (principal) | CPT/HCPCS: 93010 ==

== ENCOUNTER 2023-06-11 10:06 | Outpatient (REF) | payer OTHER, SELFPAY ==
[2023-06-11 11:15] LABS: Thyroid Stimulating Hormone 0.48 uIU/mL (0.32-4.0)
== END 2023-06-11 10:07 | disposition home or self-care (01) ==
LOC: HO.10HDL 10:06
PROVIDERS: Visit Provider Internal Medicine
DX: Z13.31 Encounter for screening for depression (principal); R07.89 Other chest pain; R00.2 Palpitations; F41.0 Panic disorder [episodic paroxysmal anxiety]
CPT/HCPCS: 36415; 84443

== ENCOUNTER 2023-08-09 10:00 | Emergency (ER) | payer OTHER, SELFPAY ==
--- NOTE | 2023-08-09 | ECG_ITS ---
Test Reason : CHEST PAIN Blood Pressure : / mmHG Vent. Rate : 086 BPM Atrial Rate : 086 BPM P-R Int : 162 ms QRS Dur : 074 ms QT Int : 358 ms P-R-T Axes : 074 049 038 degrees QTc Int : 428 ms Normal sinus rhythm Low voltage QRS Borderline ECG When compared with ECG of 05-JUN-2023 06:28, No significant change was found Referred By: Generic ED Physician Electronically Signed By:Robby De Paz
--- NOTE | ~2023-08-09 | XR_ITS ---
EXAMINATION: XR CHEST CLINICAL INFORMATION: Chest pain COMPARISON: 02/18/2022 TECHNIQUE: Frontal view of the chest was obtained. FINDINGS: No significant abnormality is noted involving the heart, lungs, mediastinum, bony thorax or soft tissues. XR/XR chest 1V IMPRESSION: Unremarkable examination.
[2023-08-09 10:20] LABS: MANUAL DIFF FLAG NO
[2023-08-09 10:24] VITALS: BP 120/54; PULSE 96; RESP 20; TEMP 36.1; O2SAT 100; BMI 22.1
[2023-08-09 10:28] LABS: Basophils Percent Auto 0.2 % (0-2); Eosinophils Absolute Auto 0.1 X10*3/uL (0.0-0.4); Eosinophils Percent Auto 0.9 % (0-4); Hematocrit 36.6 % (37.0-47.0); Hemoglobin 12.5 g/dl (12.0-16.0); Imm Gran Abs Auto 0.02 X10*3/uL (0.00-0.03); Imm Gran Pct Auto 0.3 % (0.0-0.4); Lymphocytes Absolute Auto 1.6 X10*3/uL (1.2-4.9); Lymphocytes Percent Auto 24.1 % (20-40); Mean Corpuscular HGB Conc 34.2 g/dl (31.0-35.0); Mean Corpuscular Hemoglobin 30.6 pg (27.0-33.0); Mean Corpuscular Volume 89.5 fL (80.0-98.0); Mean Platelet Volume 10.3 fL (9.4-12.3); Monocytes Absolute Auto 0.4 X10*3/uL (0.1-1.2); Monocytes Percent Auto 5.3 % (2-11); Neutrophils Absolute Auto 4.6 x10*3/uL (2.0-8.3); Neutrophils Percent Auto 69.2 % (45-73); Platelet Count 251 X10*3/uL (160-400); Red Blood Count 4.09 X10*6/uL (4.20-5.50); Red Cell Distribution Width 11.2 % (11.0-16.0); White Blood Count 6.7 X10*3/uL (4.8-10.8)
[2023-08-09 10:53] LABS: Alanine Aminotransferase 10 U/L (0-31); Albumin Level 4.1 g/dL (3.5-5.0); Alkaline Phosphatase 70 U/L (39-117); Anion Gap 11 (12-20); Aspartate Amino Transferase 15 U/L (5-31); Bilirubin Total 0.4 mg/dL (0.0-1.0); Blood Urea Nitrogen 12 mg/dL (9-16); Calcium 9.3 mg/dL (8.4-10.2); Carbon Dioxide 26 mmol/L (22-29); Chloride 105 mmol/L (96-108); Creatinine Clr Calc Pharmacy 102.2; Estimated Glomerular Filt Rate > 60; Glucose Random 84 mg/dL (60-115); Potassium 3.8 mmol/L (3.3-5.1); Sodium 138 mmol/L (135-145); Total Protein 7.4 g/dL (6.5-8.0)
[2023-08-09 11:01] LABS: Troponin-I High Sensitivity < 2.7 ng/L (<3.5-17.0)
[2023-08-09 11:47] LABS: Influenza A PCR NEGATIVE (Negative); Influenza B PCR NEGATIVE (Negative); Resp Syncy Virus RNA Qual PCR NEGATIVE (Negative); SARS COV2 PCR INHOUSE NEGATIVE (Negative)
[2023-08-09 12:28] VITALS: BP 114/66; PULSE 88; RESP 18; TEMP 36.5; O2SAT 96
--- NOTE | 2023-08-09 12:29 | ED.URI ---
HPI - URI/Sore Throat General Chief Complaint: Upper Respiratory Symptoms Stated Complaint: Chest pain, cough Time Seen by Provider: 08/09/23 13:17 Source: patient and sole cutter (tamazight) Mode of arrival: ambulatory Limitations: no limitations History of Present Illness HPI Narrative: 28-year-old female with a past medical history significant for asthma presents to the ED today for evaluation of dry cough and headache x1 week. Admits to chest discomfort on coughing. She has been using her albuterol inhaler at home without relief. Last used it yesterday. She has been taking kemx-ins-thcityy Mucinex and Benadryl without relief. Denies fever, chills, sore throat, sputum production, palpitations, chest pain, wheezing, lower extremity pain/swelling. No recent travel or long car rides. No known sick contacts. 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 Related Data Previous Rx's Medication Instructions Recorded diphenhydramine HCl 25 mg tablet 50 mg (2 x 25 mg) PO TID PRN 01/01/21 (Benadryl Allergy) itching #10 tabs albuterol sulfate 90 mcg/actuation 2 puff inhalation Q4-6H PRN 05/26/21 aerosol inhaler shortness of breath or wheezing #8.5 grams azithromycin 250 mg tablet See Rx Instructions PO .COMPLEX #6 05/26/21 (Zithromax Z-Wally) tabs ibuprofen 600 mg tablet 600 mg PO Q6H PRN pain #20 tabs 05/26/21 prednisone 20 mg tablet 40 mg (2 x 20 mg) PO DAILY 5 days 05/26/21 #10 tabs benzonatate 100 mg capsule 100 mg PO TID PRN cough #14 caps 02/18/22 erythromycin 5 mg/gram (0.5 %) eye 0.5 inch ophthalmic (eye) TID #3.5 02/18/22 ointment grams hydrocodone-homatropine 5 mg-1.5 5 ml PO Q6H PRN cough #60 mL 02/18/22 mg/5 mL oral syrup (Hycodan (with homatropine)) ibuprofen 600 mg tablet 600 mg PO Q8H PRN fever or pain 02/18/22 #10 tabs prednisone 20 mg tablet 40 mg (2 x 20 mg) PO DAILY #10 tabs 02/18/22 ibuprofen 800 mg tablet 800 mg PO Q8H PRN pain #30 tabs 07/10/22 metoclopramide HCl 10 mg tablet 10 mg PO Q6H PRN nausea and 07/10/22 vomiting #14 tabs loperamide 2 mg tablet 2 mg PO Q6H PRN loose stool #10 07/31/22 tabs ondansetron 4 mg disintegrating 4 mg PO Q6H PRN nausea and 07/31/22 tablet vomiting #10 tabs cephalexin 500 mg capsule 500 mg PO Q6H 7 days #28 caps 09/26/22 nitrofurantoin 100 mg PO Q12H 7 days #14 caps 09/30/22 monohydrate/macrocrystals 100 mg capsule (Macrobid) cefuroxime axetil 500 mg tablet 500 mg PO BID #14 tabs 12/20/22 loperamide 2 mg capsule 2 mg PO Q6H PRN loose stool #14 12/20/22 caps ondansetron 4 mg disintegrating 4 mg PO Q6H PRN nausea and 12/20/22 tablet vomiting #10 tabs azithromycin 250 mg tablet See Rx Instructions PO .COMPLEX #6 08/09/23 (Zithromax Z-Wally) tabs benzonatate 100 mg capsule 100 mg PO BID PRN cough #20 caps 08/09/23 prednisone 20 mg tablet 40 mg (2 x 20 mg) PO DAILY 5 days 08/09/23 #10 tabs Allergies Allergy/AdvReac Type Severity Reaction Status Date / Time No Known Allergies Allergy Verified 06/05/23 06:25 [No Known Allergies*] Review of Systems Review of Systems: Constitutional: No fever, chills, fatigue, night sweats, weight changes ENT/Mouth: No ear pain, hearing loss, nasal congestion, sinus pain, rhinorrhea, sore throat Eyes: No eye pain, swelling, redness, vision changes, discharge Cardio: No chest pain, palpitations, CHONG, orthopnea, peripheral edema, +chest discomfort Pulm: No sputum, wheezing, dyspnea, hemoptysis, +cough, +SOB GI: No nausea, vomiting, hematemesis, abdominal pain, diarrhea, constipation, hematochezia, melena : No irregular bleeding, dysuria, frequency, urgency, hesitancy, hematuria, flank pain, urinary flow changes, urinary incontinence or retention MSK: No back pain, neck pain, joint pain, myalgias Skin: No lesions, rashes Neuro: No weakness, numbness, paresthesias, LOC, dizziness, headache Psych: No anxiety/panic, depression, SI/HI, AH/VH All other systems reviewed and are negative. [facility] Past Medical History Attestation statement: The following information was validated with the patient. Source: old records reviewed and nursing notes reviewed Medical History Asthma Social History Social History Alcohol intake: never Patient Tobacco Use Status: Never used Tobacco Advance Directives: No Physical Exam Vital Signs: Vital Signs: Last Vital Signs Temp 97.7 F 08/09/23 13:34 Pulse 88 08/09/23 13:34 Resp 18 08/09/23 13:34 BP 114/66 08/09/23 13:34 Pulse Ox 96 08/09/23 13:34 O2 Del Method Room Air 08/09/23 13:34 BMI result Body Mass Index 22.1 Vital signs stable Const: General: cooperative, healthy appearing, comfortable and no acute distress Orientation/consciousness: patient oriented x3 Limitations: no limitations HEENT: Other: + posterior oropharynx without erythema or edema. No tonsillar exudates. Uvula midline. Controlling secretions and speaking complete sentences. Head: Yes normal to inspection, Yes No palpable skull fracture present, Yes normocephalic and Yes atraumatic Ears: hearing grossly normal bilaterally, external ears normal, TM's normal bilaterally, EAC's normal, mastoids normal and no periauricular adenopathy Eyes: General: appearance normal, both eyes and all related structures Conjunctivae: conjunctivae normal Sclerae: sclerae normal Pupils: Equal, round and reactive pupils present Neck: Neck: Yes normal visual inspection, Yes full ROM, Yes no lymphadenopathy and Yes no meningeal signs Chest: Chest palpation & inspection: normal inspection of the chest and normal palpation of entire chest wall Resp: Effort & Inspection: normal respiratory effort, able to speak in complete sentences and Actively coughing Auscultation: clear to auscultation bilaterally, no crackles, no rhonchi and no wheezes Cardio: Jugular venous distension: no JVD Rate: regular rate Rhythm: regular rhythm Skin: General skin exam: no rashes or lesions noted Neuro: General: patient oriented x3, gait normal and no meningeal signs Cranial nerves: Yes Equal, round and reactive pupils present Extrem: General: Yes normal to inspection Course Course Course Narrative: RME:?28 yo female hx of asthma here for eval of cough, headache x1 week. admits to chest pain on coughing. no sputum production, fevers, chills. using her inhaler at home without relief. labs, serology, cxr ordered. Full HPI, ROS and PE to be performed by the primary ED provider. Reevaluation(s) Reevaluation #1: 1321-- patient has tested negative for COVID, flu, RSV. Labs without leukocytosis. No left shift. Chemistry without acute electrolyte abnormality requiring intervention. Beta HCG negative. Troponin undetectable > given symptom chronicity, repeat not necessary as ACS unlikely. EKG is within normal limits, no ST elevations or acute ischemic changes. Patient does not exhibit any signs of acute respiratory distress and lungs are CTA bilaterally. She does not require breathing treatment in ED. > discussed all workup results with patient. Patient likely has bronchitis. Will send her home with Z-Wally, prednisone, Miguel Martin. She states that she still has her inhaler at home. Educated her on inhaler use. Patient has remained stable throughout ED visit today. Discussed worrisome signs and symptoms and when to return to the ED. All questions answered at this time. Patient is agreeable with disposition and stable for discharge. Medical Decision Making Medical Decision Making [facility] Narrative: 28-year-old female with a past medical history significant for asthma presents to the ED today for evaluation of dry cough and headache x1 week. Vital signs stable. Afebrile. Satting 100% on room air. Lungs are CTA bilaterally. No wheezes or rhonchi. RRR. No calf tenderness. Posterior oropharynx WNL. Bilateral EACs WNL. Differential diagnosis includes viral syndrome, pneumonia, asthma exacerbation, bronchitis. Low suspicion for acute respiratory distress syndrome, pleural effusion, ACS, arrhythmia, PE. Viral serology, labs, chest x-ray, EKG ordered in triage. Plan for re-evaluation. Differential Diagnosis Differential Diagnoses: The differential diagnosis associated with the presentation includes as above. Admission/Observation as above. Lab Data [facility] Lab Attestation statement: I reviewed the patient's lab results. as above. 08/09/23 10:15 08/09/23 10:15 Labs: Lab Results 08/09/23 Range/Units 10:15 WBC 6.7 (4.8-10.8) X10*3/uL RBC 4.09 L (4.20-5.50) X10*6/uL Hgb 12.5 (12.0-16.0) g/dl Hct 36.6 L (37.0-47.0) % MCV 89.5 (80.0-98.0) fL MCH 30.6 (27.0-33.0) pg MCHC 34.2 (31.0-35.0) g/dl RDW 11.2 (11.0-16.0) % Plt Count 251 (160-400) X10*3/uL MPV 10.3 (9.4-12.3) fL Immature Gran % (Auto) 0.3 (0.0-0.4) % Neut % (Auto) 69.2 (45-73) % Lymph % (Auto) 24.1 (20-40) % Bent % (Auto) 5.3 (2-11) % Eos % (Auto) 0.9 (0-4) % Baso % (Auto) 0.2 (0-2) % Lymph # (Auto) 1.6 (1.2-4.9) X10*3/uL Bent # (Auto) 0.4 (0.1-1.2) X10*3/uL Eos # (Auto) 0.1 (0.0-0.4) X10*3/uL Baso # (Auto) 0.0 (0.0-0.2) X10*3/uL Abs Immat Gran (auto) 0.02 (0.00-0.03) X10*3/uL Absolute Neuts (auto) 4.6 (2.0-8.3) x10*3/uL Absolute Nucleated RBC 0.000 (0.0-0.012) X10*3/uL Nucleated RBC % (auto) 0.0 (0.0-0.2) /100WBC Sodium 138 (135-145) mmol/L Potassium 3.8 (3.3-5.1) mmol/L Chloride 105 (96-108) mmol/L Carbon Dioxide 26 (22-29) mmol/L Anion Gap 11 L (12-20) BUN 12 (9-16) mg/dL Creatinine 0.69 (0.5-1.4) mg/dL Estim Creat Clear Calc 102.2 Estimated GFR > 60 Random Glucose 84 (60-115) mg/dL Calcium 9.3 (8.4-10.2) mg/dL Total Bilirubin 0.4 (0.0-1.0) mg/dL AST 15 (5-31) U/L ALT 10 (0-31) U/L Alkaline Phosphatase 70 (39-117) U/L Troponin I High Sens < 2.7 (<3.5-17.0) ng/L Total Protein 7.4 (6.5-8.0) g/dL Albumin 4.1 (3.5-5.0) g/dL Beta HCG, Quant < 2 mIU/mL Influenza Type A (PCR) NEGATIVE (Negative) Influenza Type B (PCR) NEGATIVE (Negative) RSV RNA Qual (PCR) NEGATIVE (Negative) SARS-CoV-2 RNA (RT-PCR) NEGATIVE (Negative) Independent Interpretation I performed an independent interpretation of an: EKG and Plain X-Ray Interpretation: EKG showing normal sinus rhythm rate of 86 beats per QT 3 QT, QTC 428 slight low voltage QRS, no acute ischemic changes or ST elevations. I personally reviewed chest x-ray and agree with radiologist's interpretation. Radiology Impression Discussion of test interpretation with radiology: I have reviewed the radiologist's reading. Radiologist Impression: EXAMINATION: XR CHEST CLINICAL INFORMATION: Chest pain COMPARISON: 02/18/2022 TECHNIQUE: Frontal view of the chest was obtained. FINDINGS: No significant abnormality is noted involving the heart, lungs, mediastinum, bony thorax or soft tissues. XR/XR chest 1V IMPRESSION: Unremarkable examination. External Record Review External record reviewed: Inpatient record Prescription Management I considered prescription management with: Antibiotic (Azithromycin) and Other (Prednisone, Tessalon Perles) Chronic Conditions Patient?s care impacted by: Other (asthma) Social Determinants Patient?s care significantly limited by Social Determinants of Health including: Other Social Determinant of Health Discharge Plan Discharge Clinical Impression: Upper respiratory infection, Asthma Patient Disposition: Home, Self-Care Instructions: Asthma (ED), Upper Respiratory Infection (ED) Additional Instructions: Your labs today are reassuring. Your chest xray is normal. You tested negative for covid, flu, rsv. You likely have an upper respiratory infection. Azithromycin an antibiotic that has been sent to your pharmacy. Take this over the next 5 days. Take this to completion and do not miss any doses as this may infection to return. Tessalon Perles have been sent to your pharmacy. You may take these for cough. Prednisone as a steroid that has been sent to your pharmacy. Please take this over the next 5 days to help your asthma. Alter ibuprofen and Tylenol for fevers and body aches. Follow-up with your PCP. If symptoms persist or worsen please return to the emergency department. The case of an emergency call 911. Prescriptions: New benzonatate 100 mg capsule 100 mg PO BID PRN (Reason: cough) Qty: 20 0RF prednisone 20 mg tablet 40 mg PO DAILY 5 Days Qty: 10 0RF azithromycin [Zithromax Z-Wally] 250 mg tablet See Rx Instructions .ROUTE .COMPLEX Qty: 6 0RF Rx Instructions: For 250 mg dose pack: take 500 mg today (day 1), then 250 mg for 4 days (days 2-5) No Action diphenhydramine HCl [Benadryl Allergy] 25 mg tablet 50 mg PO TID PRN (Reason: itching) Qty: 10 0RF albuterol sulfate 90 mcg/actuation HFA aerosol inhaler 2 puff inhalation Q4-6H PRN (Reason: shortness of breath or wheezing) Qty: 8.5 0RF azithromycin [Zithromax Z-Wally] 250 mg tablet See Rx Instructions .ROUTE .COMPLEX Qty: 6 0RF Rx Instructions: For 250 mg dose pack: take 500 mg today (day 1), then 250 mg for 4 days (days 2-5) ibuprofen 600 mg tablet 600 mg PO Q6H PRN (Reason: pain) Qty: 20 0RF prednisone 20 mg tablet 40 mg PO DAILY 5 Days Qty: 10 0RF erythromycin 5 mg/gram (0.5 %) ointment 0.5 inch ophthalmic (eye) TID Qty: 3.5 0RF ibuprofen 600 mg tablet 600 mg PO Q8H PRN (Reason: fever or pain) Qty: 10 0RF benzonatate 100 mg capsule 100 mg PO TID PRN (Reason: cough) Qty: 14 0RF hydrocodone-homatropine [Hycodan (with homatropine)] 5-1.5 mg/5 mL syrup 5 ml PO Q6H PRN (Reason: cough) Qty: 60 0RF Rx Instructions: Partial Fill upon patient request. prednisone 20 mg tablet 40 mg PO DAILY Qty: 10 0RF metoclopramide HCl 10 mg tablet 10 mg PO Q6H PRN (Reason: nausea and vomiting) Qty: 14 0RF ibuprofen 800 mg tablet 800 mg PO Q8H PRN (Reason: pain) Qty: 30 0RF ondansetron 4 mg tablet,disintegrating 4 mg PO Q6H PRN (Reason: nausea and vomiting) Qty: 10 0RF loperamide 2 mg tablet 2 mg PO Q6H PRN (Reason: loose stool) Qty: 10 0RF cefuroxime axetil 500 mg tablet 500 mg PO BID Qty: 14 0RF ondansetron 4 mg tablet,disintegrating 4 mg PO Q6H PRN (Reason: nausea and vomiting) Qty: 10 0RF loperamide 2 mg capsule 2 mg PO Q6H PRN (Reason: loose stool) Qty: 14 0RF cephalexin 500 mg capsule 500 mg PO Q6H 7 Days Qty: 28 0RF nitrofurantoin monohyd/m-cryst [Macrobid] 100 mg capsule 100 mg PO Q12H 7 Days Qty: 14 0RF Rx Instructions: must administer with a meal/food Referrals: Melania Haywood MD [Primary Care Provider] - Stand Alone Forms: Work/School Release Interventions: ED Discharge Assessment Last Done: 08/09/23 13:34 Discharge Date/Time: 08/09/23 13:35 Print Language: Nigerien
[2023-08-09 12:59] LABS: HCG Quantitative < 2 mIU/mL
[2023-08-09 13:34] VITALS: BP 114/66; PULSE 88; RESP 18; TEMP 36.5; O2SAT 96
== END 2023-08-09 13:35 | disposition home or self-care (01) ==
PROVIDERS: Physician Assistant Medical; Emergency Provider Emergency Medicine; PCP Internal Medicine
DX: J06.9 Acute upper respiratory infection, unspecified (principal); J45.909 Unspecified asthma, uncomplicated; Z11.52 Encounter for screening for COVID-19; Z20.828 Contact with and (suspected) exposure to other viral communicable diseases
CPT/HCPCS: 0241U; 36415; 71045; 80053; 84484; 84702; 85025; 93005; 99283

== ENCOUNTER → 2023-08-09 10:09 | Outpatient (BNV) | payer OTHER, SELFPAY | PROVIDERS: Emergency Provider Emergency Medicine; PCP Internal Medicine; Visit Provider Internal Medicine Cardiovascular Disease | DX: R94.31 Abnormal electrocardiogram [ECG] [EKG] (principal) | CPT/HCPCS: 93010 ==

== ENCOUNTER 2023-09-05 15:20 | Outpatient (REF) | payer OTHER, SELFPAY ==
[2023-09-05 17:24] LABS: Alanine Aminotransferase 12 U/L (0-31); Albumin Level 4.3 g/dL (3.5-5.0); Alkaline Phosphatase 62 U/L (39-117); Anion Gap 9 (12-20); Aspartate Amino Transferase 20 U/L (5-31); Bilirubin Total 0.3 mg/dL (0.0-1.0); Blood Urea Nitrogen 12 mg/dL (9-16); Carbon Dioxide 31 mmol/L (22-29); Chloride 104 mmol/L (96-108); Estimated Glomerular Filt Rate > 60; Glucose Random 79 mg/dL (60-115); Potassium 3.8 mmol/L (3.3-5.1); Sodium 140 mmol/L (135-145); T4 Thyroxine 8.7 ug/dL (4.5-12.0); Thyroid Stimulating Hormone 0.75 uIU/mL (0.32-4.0); Total Protein 7.7 g/dL (6.5-8.0)
== END 2023-09-05 15:21 | disposition home or self-care (01) ==
LOC: HO.LAB 15:20
PROVIDERS: PCP Internal Medicine; Visit Provider Psychiatry & Neurology Neurology
DX: F41.9 Anxiety disorder, unspecified (principal)
CPT/HCPCS: 36415; 80053; 84436; 84443

== ENCOUNTER 2023-10-18 13:54 | Outpatient (REF) | payer OTHER, SELFPAY ==
--- NOTE | ~2023-10-18 | US_ITS ---
EXAMINATION: US THYROID CLINICAL INFORMATION: Goiter. COMPARISON: None available. TECHNIQUE: Linear transducer grayscale and color Doppler examination with attention to the region of the thyroid. FINDINGS: SIZE: Measurements of the thyroid lobes and nodules are given in sagittal, anteroposterior and transverse dimensions respectively. Right Thyroid Lobe: 4.5 x 1.2 x 1.3 cm, volume 3.4 mL. Parenchyma: The gland echotexture is homogeneous. Thyroid vascularity is normal. Left Thyroid Lobe: 3.7 x 1.0 x 1.1 cm, volume 2.1 mL. Parenchyma: The gland echotexture is homogeneous. Thyroid vascularity is normal. Isthmus: 0.31 cm in maximum AP dimension. No focal thyroid nodule is seen. NODES: No lymphadenopathy is seen in the tissue surrounding the thyroid gland. US/US thyroid IMPRESSION: Normal exam ACR TI-RADS RECOMMENDATION REFERENCE: Ultrasound-guided fine-needle aspiration, followup ultrasound, no further follow up. * TR1 (0 point) and TR2 (2 points): No FNA or follow up. * TR3 (3 points): FNA if more than or equal to 2.5 cm in maximum dimension, followup ultrasound in 1, 3 and 5 years if 1.5 to 2.4 cm in maximum dimension. * TR4 (4-6 points): FNA if more than or equal to 1.5 cm in maximum dimension, followup ultrasound in 1, 2, 3 and 5 years if 1 to 1.4 cm in maximum dimension. * TR5 (more than or equal to 7 points): FNA if more than or equal to 1 cm in maximum dimension, followup ultrasound every year for 5 years if 0.5 to 0.9 cm in maximum dimension. * TR3, TR4 or TR5 nodules that are below the size threshold for followup receive no follow up.
== END 2023-10-18 13:55 | disposition home or self-care (01) ==
LOC: HO.US 13:54
PROVIDERS: PCP Internal Medicine; Visit Provider Internal Medicine
DX: E04.9 Nontoxic goiter, unspecified (principal)
CPT/HCPCS: 76536

== ENCOUNTER 2025-01-28 09:31 | Outpatient (AMB) | payer OTHER, SELFPAY ==
--- NOTE | 2025-01-28 09:32 | MHC.OFFVIS ---
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 No concerns. Chief Radiation Therapist: Chief Radiation Therapist Present (Malika) Accompanied by: Self / Same As Patient Allergies No Known Allergies (No Known Allergies*) Allergy (Verified 01/28/25 09:38) Is last menstrual period known: Yes Last menstrual period: 01/18/25 Post menopausal: No Patient : No HPI Comments Details: For a new patient consult for removal of her Nexplanon device. It has been in over 3 years and she is planning for a future . She has 1 child who is 4 years old. Last Pap was do done when she was . She has no regularly scheduled periods. 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 Sexual orientation: Straight/Heterosexual Gender identity: Female Female Reproductive History Menstrual Duration of menses: 6-7 days Date of last menstrual period: 01/18/25 control method: implanted (Nexplanon) Total pregnancies: 1 Full term: 1 History of abnormal pap smear: No Review of Systems Const All systems reviewed & are unremarkable except as noted in HPI and below Endo Reports no additional complaints Physical Exam Vital Signs: Last Vital Signs BP 100/70 01/28/25 09:42 BMI result Body Mass Index 22.0 Const General: cooperative, healthy appearing and no acute distress Extrem Other: Implant palpable superficially upper inner right arm, nontender Psych Appearance: well kempt Attitude: cooperative Thought process: Normal thought process present Office Procedures Contraception Insert/Removal Details Details: Nexplanon Removal Procedure Nexplanon Removal Counseling: The patient was counseled regarding Nexplanon removal procedure risks for: pain, infection bleeding, bruising , swelling scarring, injury to nerves, blood vessels, and surrounding tissue. ?All questions were answered. ?The patient has signed the consent form and desires to proceed with the procedure. Nexplanon Removal Procedure: The patient was placed in a supine position with her non dominant right hand resting under her head. The insertion site was located: 8-10cm from the medial epicondyle notch of the humerus, posterior to the sulcus, between the triceps and biceps muscle. The area of the ?implant was identified and the distal tip located. This area was cleansed with an alcohol prep and 1 ml of 1% Lidocaine on a 25 gauge needle and syringe was utilized for adequate anesthesia to the insertion site. After ascertaining adequate anesthesia, the area was prepped with Hibiclens solution. The skin over the distal tip was incised with a #11 blade scalpel and the capsule was located and entered freeing the implant from the canal. The implant was removed with a gentle tug using a mosquito clamp and removed intact. Direct pressure was applied to the insertion site for hemostasis, minimal bleeding was observed. Steri strips, Tegaderm covering, gauze pads, and Marquis wrap dressing were secured with paper tape. Nexplanon Removal Post Care Instructions: You may expect mild tenderness, swelling, and bruising from the area. If no allergies, you may use a mild over the counter analgesic like Tylenol or Advil (follow the manufacturers recommendations on dosing and frequency of use). Call the office if any symptoms and including: fever (over 100.4), flu like symptoms, signs of infection-redness, pus drainage, pain (beyond usual healing). Keep the pressure dressing on and clean and dry for 24 hours, then remove it. You may take the steri strips and Tegaderm off in 5-7 days, or sooner if peeling off on its own. The patient tolerated the procedure well and left the office in good condition. This note is constructed using voice recognition software. ?While every effort has been made to ensure accuracy, type casting machine operator errors may have been included. ? 16435 - Removal Results AMB Test Urine AMB Test Urine Negative Last Edit by SIRI Pritchett on 01/28/25 10:02 Assessment & Plan Assessment & Plan (1) Encounter for Nexplanon removal: Code(s): Z30.46 - Encounter for surveillance of implantable subdermal contraceptive Plan See procedure notes. Annual exam and follow up scheduled 02/04/2025. Rx for vitamins sent in. Encouraged healthy diet. Use of monitoring menses with a phone marjorie. Condoms for 1st couple of months. Follow up annual exam scheduled. The patient expressed understanding and agreement with the plan of care. All of her questions and concerns were addressed to the best of my ability. This note is constructed using voice recognition software. While every effort has been made to ensure accuracy, type casting machine operator errors may have been included. Orders: Orders AMB HCG Urine Test Today Z32.02 - Encounter for test, result negative Medications: New PNV no.[id number] 400 mcg-35 mg- 25 mg-5 mg ( Gummies) 1 tab PO DAILY 90 tabs 4RF PNV no.[id number] 400 mcg-35 mg- 25 mg-5 mg ( Gummies) 1 tab PO DAILY 90 tabs 4RF Discontinued diphenhydramine HCl (Benadryl Allergy) Discontinued Reason: Patient Completed Course 50 mg (2 x 25 mg) PO TID PRN 10 tabs 0RF itching albuterol sulfate 90 mcg/actuation Discontinued Reason: Patient Completed Course 2 puffs inhalation Q4-6H PRN 8.5 grams 0RF shortness of breath or wheezing ibuprofen Discontinued Reason: Patient Completed Course 600 mg PO Q6H PRN 20 tabs 0RF pain prednisone Discontinued Reason: Patient Completed Course 40 mg (2 x 20 mg) PO DAILY 5 days 10 tabs 0RF benzonatate Discontinued Reason: Patient Completed Course 100 mg PO TID PRN 14 caps 0RF cough erythromycin Discontinued Reason: Patient Completed Course 0.5 inches ophthalmic (eye) TID 3.5 grams 0RF hydrocodone-homatropine 5-1.5 mg/5 mL (Hycodan (with homatropine)) Partial Fill upon patient request. Discontinued Reason: Patient Completed Course 5 mL PO Q6H PRN 60 mL 0RF cough ibuprofen Discontinued Reason: Patient Completed Course 600 mg PO Q8H PRN 10 tabs 0RF fever or pain prednisone Discontinued Reason: Patient Completed Course 40 mg (2 x 20 mg) PO DAILY 10 tabs 0RF azithromycin (Zithromax Z-Wally) Discontinued Reason: Patient Completed Course For 250 mg dose pack: take 500 mg today (day 1), then 250 mg for 4 days (days 2-5) 6 tabs 0RF ibuprofen Discontinued Reason: Patient Completed Course 800 mg PO Q8H PRN 30 tabs 0RF pain metoclopramide HCl Discontinued Reason: Patient Completed Course 10 mg PO Q6H PRN 14 tabs 0RF nausea and vomiting loperamide Discontinued Reason: Patient Completed Course 2 mg PO Q6H PRN 10 tabs 0RF loose stool ondansetron Discontinued Reason: Patient Completed Course 4 mg PO Q6H PRN 10 tabs 0RF nausea and vomiting cephalexin Discontinued Reason: Patient Completed Course 500 mg PO Q6H 7 days 28 caps 0RF loperamide Discontinued Reason: Patient Completed Course 2 mg PO Q6H PRN 14 caps 0RF loose stool ondansetron Discontinued Reason: Patient Completed Course 4 mg PO Q6H PRN 10 tabs 0RF nausea and vomiting azithromycin (Zithromax Z-Wally) Discontinued Reason: Patient Completed Course For 250 mg dose pack: take 500 mg today (day 1), then 250 mg for 4 days (days 2-5) 6 tabs 0RF prednisone Discontinued Reason: Patient Completed Course 40 mg (2 x 20 mg) PO DAILY 5 days 10 tabs 0RF nitrofurantoin monohyd/m-cryst 100 mg (Macrobid) must administer with a meal/food Discontinued Reason: Patient Completed Course 100 mg PO Q12H 7 days 14 caps 0RF cefuroxime axetil Discontinued Reason: Patient Completed Course 500 mg PO BID 14 tabs 0RF benzonatate Discontinued Reason: Patient Completed Course 100 mg PO BID PRN 20 caps 0RF cough Coding Level of Care Code Procedure Only Diagnoses Encounter for Nexplanon removal Z30.46 CPT Codes Details - Contraception: 80788 - Removal ([id number])
[2025-01-28 09:42] VITALS: BP 100/70; BMI 22.0
--- OUTSIDE RECORDS SUMMARY | 2025-01-28 11:16 | XMS_ITS | Clinical Summary ---
Author Organization [facility] Address [address] [place] [phone] Phone Care Team Providers Care Sheet Rock Sander Name Role Phone Melania Haywood MD Primary Care Provider [phone] Allergies No known active allergies Medications hydrOXYzine HCL (ATARAX) 25 mg tablet Take 1 tablet (25 mg total) by mouth every 6 (six) hours for 3 days. 12 tablet 05/31/2024 Active Medical History Medical History Date Comments Asthma Social History Tobacco Use Types Packs/Day Years Used Date Smoking Tobacco: Never Smokeless Tobacco: Never Tobacco Cessation:Counseling Given: Not Answered Alcohol Use Standard Drinks/Week Comments Never 0 (1 standard drink = 0.6 oz pur e alcohol) Comments Unknown Sex and Gender Information Value Date Recorded Sex Assigned at Female 05/31/2024 5:47 PM EST Legal Sex Female 2:56 PM EST Gender Identity Female 05/31/2024 5:47 PM EST Sexual Orientation Not on file Obstetrics History Last Filed Vital Signs Vital Sign Reading Time Taken Comments Blood Pressure 118/72 06/10/2024 3:00 PM EST Pulse 118 06/10/2024 3:00 PM EST Temperature 37.3 C (99.1 F) 06/10/2024 10:30 AM EST Respiratory Rate 16 06/10/2024 3:00 PM EST Oxygen Saturation 98% 06/10/2024 3:00 PM EST Inhaled Oxygen Concentration - - Weight 55.8 kg (123 lb) 06/10/2024 10:30 AM EST Height 160 cm (5' 3 ) 06/10/2024 10:30 AM EST Body Mass Index 21.79 06/10/2024 10:30 AM EST Plan of Treatment Health Maintenance Due Date Last Done Comments Hepatitis B Vaccines (1 of 3 - 19+ 3-dose series) 01/08/2016 Pneumococcal Vaccine: Pediatrics (0 to 5 Years) and At-Risk Patients (6 to 49 Years) (1 of 2 - PCV) 01/08/2016 Cervical Cancer Screening: P ap Smear 2018 Depression Screening 05/14/2024 HIV Screening 05/31/2024 Hepatitis C Screening 05/31/2024 Social Influencers of Health Screening 05/31/2024 COVID-19 Vaccine ( - 2024-2 6 season) 2025 04/05/2022, 03/08/2021, 02/15/2021 Influenza Vaccine (#1) 2025 02/17/2020 DTaP,Tdap,and Td Vaccines (2 - Td or Tdap) 12/07/2029 12/08/2019 HIB Vaccines Aged Out No longer eligi ble based on patient's age to complete this topic HPV Vaccines Aged Out No longer eligi ble based on patient's age to complete this topic Hepatitis A Vaccines Aged Out No long er eligible based on patient's age to complete this topic IPV Vaccines Aged Out No longer eligi ble based on patient's age to complete this topic MMR Vaccines Aged Out No longer eligi ble based on patient's age to complete this topic Meningococcal ACWY Vaccine Aged Out N o longer eligible based on patient's age to complete this topic Meningococcal B Vaccine Aged Out No l onger eligible based on patient's age to complete this topic RSV Immunization Patients Under 20 months Aged Out No longer eligible b ased on patient's age to complete this topic Varicella Vaccines Aged Out No longer eligible based on patient's age to complete this topic Insurance [facility] Care Teams Sheet Rock Sander Relationship Specialty Start Date End Date Melania Haywood MD [address] [place] [address] [place] [id number] PCP - General Internal Medicine 05/31/24
--- OUTSIDE RECORDS SUMMARY | 2025-01-28 11:16 | XMS_ITS | Clinical Summary ---
Author Organization [facility] Address [address] [place] [address] [place] [id number] Phone Care Team Providers Care Equipment Worker Name Role Phone Jeff Gaming MD Primary Care Provider [phone] Allergies No known active allergies Social History Tobacco Use Types Packs/Day Years Used Date Smoking Tobacco: Never Assessed Education Answer Date Recorded Are you interested in more education? Not on urszula e 09/08/2022 Are you concerned about learning? Not on file 09/08/2022 No 09/08/2022 No 09/08/2022 Digital Access Answer Date Recorded No 10/10/2022 No 10/10/2022 Reliable internet access at home? Not on file 10/10/2022 Device with a working camera? Not on file Comments Unknown Sex and Gender Information Value Date Recorded Sex Assigned at Not on file Legal Sex Female 12:56 PM EST Gender Identity Not on file Sexual Orientation Not on file Last Filed Vital Signs Vital Sign Reading Time Taken Comments Blood Pressure 115/58 07/05/2020 1:00 PM EST Pulse 91 07/05/2020 1:00 PM EST Temperature 36.9 C (98.5 F) 07/05/2020 1:00 PM EST Respiratory Rate 16 07/05/2020 1:00 PM EST Oxygen Saturation 100% 07/05/2020 1:00 PM EST Inhaled Oxygen Concentration - - Weight 54.4 kg (120 lb) 07/05/2020 1:00 PM EST Height 160 cm (5' 3 ) 07/05/2020 1:00 PM EST Body Mass Index 21.26 07/05/2020 1:00 PM EST Plan of Treatment Health Maintenance Due Date Last Done Comments Adult Td,Tdap Booster 1997 DEPRESSION SCREENING 2009 SMOKING Hx and SMOKELESS TOBACCO SCREENING 2010 HEPATITIS C SCREENING 2015 HIV ONE-TIME SCREENING (18-6 5 YEARS) 2015 PAP SMEAR 2018 COVID-19 VACCINE (3 - 2023-2 5 season) 2024 03/08/2021, 02/15/2021 HEPATITIS A VACCINES Aged Out No long er eligible based on patient's age to complete this topic HIB VACCINES Aged Out No longer eligi ble based on patient's age to complete this topic MENINGOCOCCAL VACCINES (ACWY) Aged Out No longer eligible based on patient's age to complete this topic MENINGOCOCCAL VACCINES (B) Aged Out N o longer eligible based on patient's age to complete this topic PNEUMOCOCCAL VACCINES (0-49 years) Aged Out No longer eligible b ased on patient's age to complete this topic Medical Devices Not on file Insurance [address] [place] [address] Care Teams Equipment Worker Relationship Specialty Start Date End Date Jeff Gaming MD [address] [place] [id number] PCP - General Internal Medicine 07/05/20 Additional Source Comments The information contained in this document represents components of the legal health record. It is not the complete legal health record.[facility]
== END 2025-01-28 10:32 | disposition home or self-care (01) ==
LOC: HO.HWS 09:32
PROVIDERS: PCP Internal Medicine; Visit Provider Advanced Practice Midwife
DX: Z30.46 Encounter for surveillance of implantable subdermal contraceptive (principal); Z32.02 Encounter for pregnancy test, result negative
CPT/HCPCS: 11982

== ENCOUNTER → 2025-01-28 09:31 | Outpatient (BNVA) | payer OTHER, SELFPAY | PROVIDERS: PCP Internal Medicine; Visit Provider Advanced Practice Midwife | DX: Z30.46 Encounter for surveillance of implantable subdermal contraceptive (principal) | CPT/HCPCS: 11982; 81025 ==

== ENCOUNTER 2025-02-04 14:52 | Outpatient (AMB) | payer OTHER, SELFPAY ==
--- NOTE | 2025-02-04 16:07 | MHC.OFFVIS ---
Vital Signs 02/04/25 16:14 Height 5 ft 3 in Weight 124 lb BMI 22.0 BP 116/66 Blood Pressure Location Rt brachial Position Sitting Intake Visit Reasons: ruthann Intake Note: annual and follow up on nexplanon removal 1 week ago Canine Service Teacher Name: voice box Information Interpreted: non-clinical & clinical Human Resource Analyst: Human Resource Analyst Present (antoine) Accompanied by: Self / Same As Patient Allergies No Known Allergies (No Known Allergies*) Allergy (Verified 02/04/25 16:09) Medication List - Last Reconciled 02/04/25 by Ibeth Carrasquillo LPN PNV no.[id number] 400 mcg-35 mg- 25 mg-5 mg ( Gummies) 1 tab PO DAILY PNV no.[id number] 400 mcg-35 mg- 25 mg-5 mg ( Gummies) 1 tab PO DAILY Is last menstrual period known: Yes Last menstrual period: 01/18/25 Post menopausal: No Patient : No Do you need a note to return to daycare/school/sports/work: No HPI Comments Details: Patient is a premenopausal woman presenting for annual examination. Flat Sorter Processor concerns: none, Nexplanon exchange last week has steri strips and tegaderm on the site, no concerns. Currently is sexually active. She denies vaginal itching or irritation. STI screening offered; she accepts. She tries to eat healthy and stays active with exercise. Denies family history of breast, ovarian or colon cancer. Last pap smear 4 years ago with , negative. 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 Sexually active: Yes Sexual orientation: Straight/Heterosexual Gender identity: Female Female Reproductive History Menstrual Age of Menarche: 13 Date of last menstrual period: 01/18/25 control method: condoms Total pregnancies: 1 Premature: 1 History of abnormal pap smear: No Review of Systems Const All systems reviewed & are unremarkable except as noted in HPI and below Reports as per HPI Eyes Reports no additional complaints ENT Reports no additional complaints Card Reports no additional complaints Resp Reports no additional complaints GI Reports as per HPI and Reports no additional complaints Reports as per HPI Musc Reports no additional complaints Skin/Breast Reports as per HPI Neuro Reports no additional complaints Psych Reports no additional complaints Endo Reports no additional complaints Devin/Lymph Reports no additional complaints Aller/Immun Reports no additional complaints Physical Exam Vital Signs: Last Vital Signs BP 116/66 02/04/25 16:14 BMI result Body Mass Index 22.0 Const General: cooperative, healthy appearing, no acute distress, well developed and alert Orientation/consciousness: patient oriented x3 HEENT Head: Yes normal to inspection Eyes General: appearance normal, both eyes and all related structures Neck Neck: Yes normal visual inspection Thyroid: other (Enlarged fullness overall) Chest Chest palpation & inspection: normal inspection of the chest and other (no puckering, dimpling, peau de orange, retraction, discharge, masses) Breast/axilla inspection: normal inspection of the breasts Breast/axilla palpation: normal palpation of the breasts Resp Effort & Inspection: normal respiratory effort GI Inspection: Yes normal to inspection Palpation (GI): Soft to palpation Rectal Exam - Female: deferred General: Yes bladder normal to palpation External Female Exam: normal external appearance and normal appearance of the urethra Speculum Exam - Vagina: normal appearance of the vagina, normal palpation and normal vaginal discharge Speculum Exam - Cervix: normal appearance of the cervix, normal palpation and Other cervical findings present (bled w/pap) Bimanual exam- vagina & uterus: normal bimanual exam, normal palpation, uterine size normal, bladder normal to palpation, normal palpation and non-tender Bimanual Exam- Adnexa, other: no masses Skin General skin exam: no rashes or lesions noted Rashes: no rashes Neuro General: patient oriented x3 Cognition (Neuro): normal cognition Extrem Other: Nexplanon site, well healed, non tender General: Yes normal to inspection Psych Attitude: cooperative Thought process: Normal thought process present Assessment & Plan Assessment & Plan (1) Encounter for well woman exam with routine gynecological exam: Code(s): Z01.419 - Encounter for gynecological examination (general) (routine) without abnormal findings Category: Medical Plan Discussed: Current recommendations for pap smears per ASCCP guidelines. Breast awareness and periodic breast exams. Maintain a healthy lifestyle including a well balanced diet and routine exercise. Use condoms for STI and prevention. Declines blood work for STD screening. Patient verbalizes understanding and agrees to the plan of care. She was given opportunity to ask questions and all questions were answered to the best of my ability. RTO in one year for annual loader operator/ground leader examination. This note is constructed using voice recognition software. While every effort has been made to ensure accuracy, motor vehicle operator road supervisor errors may have been included. Coding Level of Care Code Est Pt Prev Care 18-39y(88426) Diagnoses Encounter for well woman exam with routine gynecological exam Z01.419
[2025-02-04 16:14] VITALS: BP 116/66; BMI 22.0
--- OUTSIDE RECORDS SUMMARY | 2025-02-04 17:22 | XMS_ITS | Clinical Summary ---
Author Organization [facility] Address [address] [place] [phone] Phone Care Team Providers Care Life Enrichment Specialist Name Role Phone Melania Haywood MD Primary Care Provider [phone] Allergies No known active allergies Medications hydrOXYzine [...] patient's age to complete this topic Insurance [facility] [employer] Care Teams Life Enrichment Specialist Relationship Specialty Start Date End Date Melania Haywood MD [address] [place] [address] [place] [id number] PCP - General Internal Medicine 05/31/24
--- OUTSIDE RECORDS SUMMARY | 2025-02-04 17:22 | XMS_ITS | Clinical Summary ---
Author Organization [facility] Address [address] [facility] [address] [place] [phone] Phone Care Team Providers Care Cream Separator Operator Name Role Phone Jeff Gaming MD Primary Care Provider [phone] Allergies No known active allergies Social History [...] (18-6 5 YEARS) 2015 PAP SMEAR 2018 INFLUENZA VACCINE (#1) 2024 COVID-19 VACCINE (2024-2 6 season) 2025 03/08/2021, 02/15/2021 HEPATITIS A VACCINES Aged Out [...] topic Medical Devices Not on file Insurance [facility] Care Teams Cream Separator Operator Relationship Specialty Start Date End Date Jeff Gaming MD [address] [place] [address] PCP - General Internal Medicine 07/05/20 Additional Source Comments The information contained in this document represents components of the legal health record. It is not the complete legal health record.[facility]
== END 2025-02-05 08:22 | disposition home or self-care (01) ==
LOC: HO.HWS 14:53
PROVIDERS: PCP Internal Medicine; Visit Provider Advanced Practice Midwife
DX: Z01.419 Encounter for gynecological examination (general) (routine) without abnormal findings (principal)
CPT/HCPCS: 99395; 99459

== ENCOUNTER 2025-02-04 14:52 | Outpatient (REF) | payer OTHER, SELFPAY ==
[2025-02-05 17:06] LABS: Bacterial Vaginosis PCR NEGATIVE (Negative); Candida Group PCR NOT DETECTED (Not Detect); Candida glab krusei PCR NOT DETECTED (Not Detect); Trichomonas vaginalis PCR NOT DETECTED (Not Detect)
[2025-02-05 17:32] LABS: CT PCR NOT DETECTED (Not Detect.); NG PCR NOT DETECTED (Not Detect.)
== END 2025-02-04 14:53 | disposition home or self-care (01) ==
LOC: HO.LNP 14:52
PROVIDERS: PCP Internal Medicine; Visit Provider Advanced Practice Midwife
DX: Z01.419 Encounter for gynecological examination (general) (routine) without abnormal findings (principal); Z20.2 Contact with and (suspected) exposure to infections with a predominantly sexual mode of transmission
CPT/HCPCS: 81515; 87491; 87591; 88175; 99395